=== PATIENT | female | born 1995 ===

== ENCOUNTER 2022-04-03 16:47 | Emergency (ER) | payer OTHER, SELFPAY ==
--- NOTE | ~2022-04-03 | XR_ITS ---
EXAMINATION: XR chest 1V CLINICAL INFORMATION: Reason for Exam HTN per triage nurse COMPARISON: None TECHNIQUE: One view of the chest FINDINGS: Clear lungs. No pneumothorax or pleural effusion. Normal cardiomediastinal silhouette. XR/XR chest 1V Impression: * Clear lungs.
--- NOTE | ~2022-04-03 | XR_ITS ---
EXAMINATION: XR hand LT 2V CLINICAL INFORMATION: Reason for Exam hand pain COMPARISON: None. TECHNIQUE: AP, lateral, and oblique views of the hand FINDINGS: No acute fracture or dislocation. Joint spaces are maintained without significant degenerative change. No soft tissue abnormality. XR/XR hand LT 2V IMPRESSION: No acute osseous abnormality.
[2022-04-03 16:51] VITALS: BP 145/73; PULSE 96; RESP 18; TEMP 36.7; O2SAT 99; BMI 49.8
--- NOTE | 2022-04-03 17:29 | ED_ITS ---
HPI - Extremity Problem General Chief complaint: Extremity Injury, Upper Stated complaint: left thumb pain work inj Time Seen by Provider: 04/03/22 17:14 Source: patient Mode of arrival: ambulatory Limitations: no limitations History of Present Illness HPI Narrative: 26-year-old female left-hand dominant here with complaints of left thumb pain after cutting some ham while working. Patient reports while she was using a knife she felt a snapping sensation in her left thumb. Immediately felt pain. No weakness, numbness or tingling of the extremity. Related Data Allergies Allergy/AdvReac Type Severity Reaction Status Date / Time Unable to Assess Allergy Verified 04/03/22 17:17 Review of Systems Review of Systems: Yes all other systems are reviewed and are negative Constitutional: Constitutional: Reports no additional constitutional complaints, Denies body ache(s), Denies chills, Denies fever(s), Denies headache(s) and Denies weakness Eyes: Eyes: Reports no additional eye complaints and Denies change in vision ENT: Reports system reviewed and no additional complaints, except as documented, Denies dizziness, Denies headache(s), Denies nasal congestion, Denies nasal discharge and Denies neck pain Cardiovascular: Cardiovascular: Reports no additional cardiovascular co mplaints, Denies chest pain, Denies leg edema and Denies dyspnea Respiratory: Respiratory: Reports no additional respiratory complaints, Denies cough and Denies dyspnea Gastrointestinal: Gastrointestinal: Reports no additional gastrointestinal complaints, Denies abdominal pain, Denies diarrhea, Denies nausea and Denies vomiting Genitourinary: Genitourinary: Reports no additional female genitourinary complaints and Denies urinary incontinence Musculoskeletal: Musculoskeletal: Reports no additional musculoskeletal complaints, Denies back pain, Reports arthralgias, Denies joint swelling, Denies neck pain, Denies numbness and Denies tingling Integumentary/Breasts: Skin/Breast: Reports system reviewed and no additional complaints, except as docu and Denies rash Neurologic: Reports system reviewed and no additional complaints, except as documented, Denies Abnormal speech present, Denies dizziness, Denies headache(s), Denies numbness, Denies tingling and Denies weakness PMFSH Past Medical History Attestation statement: The following information was validated with the patient. Source: old records reviewed and nursing notes reviewed Physical Exam Vital Signs: Vital Signs: Last Vital Signs Temp 98.1 F 04/03/22 16:51 Pulse 96 04/03/22 16:51 Resp 18 04/03/22 16:51 BP 145/73 H 04/03/22 16:51 Pulse Ox 99 04/03/22 16:51 BMI result Body Mass Index 49.8 Const: General: cooperative, healthy appearing, comfortable and no acute distress Orientation/consciousness: patient oriented x3 Limitations: no limitations HEENT: Head: Yes normal to inspection Ears: hearing grossly normal bilaterally General nose exam: Normal external nose present Face and sinus: Yes normal facial exam Mouth: Normal oral and palatal mucosa present Throat: Yes posterior oropharynx normal Eyes: General: appearance normal, both eyes and all related structures Pupils: Equal, round and reactive pupils present Neck: Neck: Yes normal visual inspection Chest: Chest palpation & inspection: normal inspection of the chest Resp: Effort & Inspection: normal respiratory effort Auscultation: clear to auscultation bilaterally Cardio: Rate: regular rate Rhythm: regular rhythm Peripheral pulses: Peripheral pulses 2+ throughout GI: Inspection: Yes normal to inspection Palpation (GI): Soft to palpation and nontender Auscultation: normal bowel sounds Back/Spine/Pelvis: Thoracic/Lumbar Spine: thoracic and lumbar spine normal to inspection Skin: General skin exam: no rashes or lesions noted Neuro: General: patient oriented x3, no focal motor deficits and normal sensation to monofilament Cranial nerves: Yes Equal, round and reactive pupils present Cognition (Neuro): normal cognition Speech: No Abnormal speech present Gait exam (Neuro): Normal gait present Motor exam (neuro): 5/5 motor strength present throughout Extrem: Other: Over the left thenar there is some mild tenderness and swelling. There is full range of motion of the thumb. Neurovascular intact distally. General: Yes nor mal to inspection Course Course Course Narrative: X-ray show no bony abnormality. Likely sprain. Recommend supportive care at home. Reviewed rice. Reviewed worrisome signs and symptoms of when to return to the emergency room. Comfortable plan for discharge home MDM - Extremity (Nontraumatic) MDM Narrative Medical decision making narrative: 26-year-old female left-hand dominant here with left thumb pain after working and having an injury. Will check x-rays Medical Records Attestation: I reviewed the patient's medical records. Lab Data Attestation: I reviewed the patient's lab results. Imaging Data hand x-ray: Attestation: I personally reviewed and interpreted this imaging study as follows: Radiologist's impression: Launch?Image [address] [address] XRay Report Signed Patient: Zainab Boyd MR#: [id number] : 1995 Acct:[id number] Age/Sex: 26 / F ADM Date: 04/03/22 Loc: HO.ED Attending Dr: Ordering Physician: Roseann Vera Date of Service: 04/03/22 Procedure(s): XR hand LT 2V Accession Number(s): [id number] cc: Roseann Vera~ EXAMINATION: XR hand LT 2V CLINICAL INFORMATION: Reason for Exam hand pain COMPARISON: None. TECHNIQUE: AP, lateral, and oblique views of the hand FINDINGS: No acute fracture or dislocation. ? Joint spaces are maintained without significant degenerative change. No soft tissue abnormality. XR/XR hand LT 2V IMPRESSION: ? No acute osseous abnormality. Discharge Plan Discharge Clinical Impression: Finger sprain Patient Disposition: Home, Self-Care Instructions: Finger Sprain (ED) Additional Instructions: Ice to the hand Motrin or tylenol for pain as needed Limit use of the hand Referrals: Physician,None [Primary Care Provider] - Stand Alone Forms: Work/School Release
== END 2022-04-03 18:03 | disposition home or self-care (01) ==
PROVIDERS: Emergency Provider Emergency Medicine
DX: S63.602A Unspecified sprain of left thumb, initial encounter (principal); R07.89 Other chest pain; Y28.9XXA Contact with unspecified sharp object, undetermined intent, initial encounter; Y93.9 Activity, unspecified; Y92.009 Unspecified place in unspecified non-institutional (private) residence as the place of occurrence of the external cause; Y99.9 Unspecified external cause status
CPT/HCPCS: 71045; 73120; 99282; 99283

== ENCOUNTER 2022-05-29 15:05 | Inpatient (IN) | payer SELFPAY ==
[2022-05-29] VITALS (8 sets, daily range): BP systolic 111–150; BP diastolic 61–81; PULSE 117–138; RESP 16–22; TEMP 36.8–37.3; O2SAT 93–96; BMI 55.2
--- NOTE | 2022-05-29 15:11 | ED.GENADULT ---
HPI - General Adult General Chief complaint: Asthma Stated complaint: SOB Time Seen by Provider: 05/29/22 15:06 Source: patient and EMS Mode of arrival: EMS Limitations: no limitations History of Present Illness HPI narrative: this is a 26-year-old female history of asthma presenting to the emergency department with shortness of breath, nausea, vomiting, diarrhea, fatigue, malaise , subjective fevers and chills X 3 days progressively worsening. Patient tells me she has used her albuterol inhaler at with little to no relief. Patient was found to be 90% on room air by EMS, was given 1 albuterol treatment, 1 DuoNeb, patient's O2 sat went up to 93% on 2 L. EMS also gave 125 of Solu-Medrol. patient reports her significant other is sick with flu-like symptoms. denies chest pain, nausea, vomiting, abdominal pain, headache, vision changes in dizziness. Related Data Previous Rx's Medication Instructions Recorded albuterol sulfate 90 mcg/actuation 2 inh inhalation Q4-6H PRN 05/29/22 breath activated powder inhaler shortness of breath or wheezing #1 ea oseltamivir 75 mg capsule (Tamiflu) 75 mg PO BID 5 days #10 caps 05/29/22 prednisone 20 mg tablet 40 mg PO DAILY 5 days #10 tabs 05/29/22 Allergies Allergy/AdvReac Type Severity Reaction Status Date / Time Unable to Assess Allergy Verified 04/03/22 17:17 Review of Systems Review of Systems: Constitutional : No Weight loss, + Fever, + Chills, + Fatigue, + Malaise ENT/Mouth : No sore throat, No Rhinorrhea Eyes: No Eye Pain, No Swelling, No Redness Cardiovascular : No Chest Pain, + SOB, No Dyspnea on Exertion, No Orthopnea, No Edema, No Palpitations Respiratory : No Cough, No Sputum, + Wheezing Gastrointestinal : + Nausea, + Vomiting, + Diarrhea, No Constipation, No abdominal Pain, No Hematochezia, No Melena Genitourinary : No Dysuria, No Urinary Frequency, No Hematuria, Musculoskeletal : No joint pain, No Myalgias, No Joint Swelling Skin : No Skin Lesions, No rash Neuro : No Weakness, No Numbness, No Dizziness, No Headache Psych : No Anxiety/Panic, No Depression All other systems reviewed and are negative Yes all other systems are reviewed and are negative PMFSH Past Medical History Attestation statement: The following information was validated with the patient. Source: old records reviewed and nursing notes reviewed Social History Social History Advance Directives: No Advance Directives Information Provided: No Physical Exam ED Vital Signs: Vital Signs - 24 hr 05/29/22 15:12 05/29/22 15:27 05/29/22 17:22 Temperature 99.2 F Pulse Rate 133 H 138 H 129 H Respiratory Rate 22 H 22 H 16 Blood Pressure 132/78 137/81 Pulse Oximetry 94 95 Oxygen Delivery Method Nasal Cannula Room Air Oxygen Flow Rate 2 05/29/22 17:41 Temperature Pulse Rate 123 H Respiratory Rate 19 Blood Pressure Pulse Oximetry Oxygen Delivery Method Oxygen Flow Rate BMI result Body Mass Index 55.2 vss Appearance: Alert.? Oriented X3.? moderate acute distress.? Head: Normocephalic, atraumatic, no step-offs or deformities Eyes: Pupils equal, round and reactive to light.? ENT: Pharynx normal.? Neck: Normal inspection.? Neck supple.? CVS: Rapid rate normal rhythm likely sinus tachycardia.? Pulses normal.? Respiratory: moderate respiratory distress.? Breath sounds diminished bilaterally with significant expiratory wheezing throughout. Patient with shallow breathing. using intercostals for breathing. Tracheal tugging noted. Speaking in short sentences Abdomen: Soft and nontender.? Skin: Skin warm and dry.? Normal skin color.? Normal skin turgor.? Extremities: No lower extremity edema.? No calf ttp, negatie sharee. 5/5 strength to bilateral upper and lower extremities Back: No midline tenderness, no C-spine tenderness, full range of motion, no CVA tenderness bilaterally Neuro: Oriented X 3.? No motor deficit.? No sensory deficit. CN 2-12 intact Course Reevaluation(s) Reevaluation #1: CBC with noted microcytic anemia. Chemistry with no acute electrolyte abnormalities requiring intervention. Patient is noted to be positive for influenza. After magnesium, Solu-Medrol, multiple nebulizing treatments patient reports she is feeling slightly better however I did obtain an ambulatory O2 and patient was noted to be 88% on room air with ambulation and was significantly short of breath. chest x-ray with hypoexpanded lungs with bibasilar atelectasis Patient will be admitted to the hospital for further intervention and treatment Time: 18:20 Medications Administered Discontinued Medications Generic Name Dose Route Start Last Admin Trade Name Fariba PRN Reason Stop Dose Admin Albuterol Sulfate 5 mg/ 0 mg 05/29/22 15:17 05/29/22 15:26 Albuterol/Ipratropium 3 ml INHALE 05/29/22 15:18 10 each ONCE ONE Administration Magnesium Sulfate 2 gm in 50 mls @ 25 mls/hr 05/29/22 15:10 05/29/22 15:17 Magnesium Sulfate/H2o IV 05/29/22 17:09 25 mls/hr ONCE ONE Administration Levalbuterol HCl 1.25 mg 05/29/22 17:07 05/29/22 17:39 Levalbuterol Hcl 1.25 Mg/0.5 Ml Vial.Neb INHALE 05/29/22 17:08 1.25 mg ONCE ONE Administration Medical Decision Making Medical Decision Making [facility] Narrative: 1514 26 year old female presents w/ sob & flu like sx. Moderate respiratory distress.? Breath sounds diminished bilaterally with significant expiratory wheezing throughout. Patient with shallow breathing. using intercostals for breathing. Tracheal tugging noted. Speaking in short sentences. Rapid rate normal rhythm likely sinus tachycardia. Likely viral infection triggering asthma. Unlikely PE or PNA. Patient has received multiple nebulizing treatments and albuterol treatments therefore tachycardia is expected Plan- duoneb, albuterol, labs, viral panel, cxr Lab Data Result Diagrams: 05/29/22 15:29 05/29/22 15:29 Labs: Lab Results 05/29/22 05/29/22 05/29/22 Range/Units 15:24 15:29 15:29 WBC 5.5 (4.8-10.8) X10*3/uL RBC 4.96 (4.20-5.50) X10*6/uL Hgb 10.1 L (12.0-16.0) g/dl Hct 32.1 L (37.0-47.0) % MCV 64.7 L (80.0-98.0) fL MCH 20.4 L (27.0-33.0) pg MCHC 31.5 (31.0-35.0) g/dl RDW 16.2 H (11.0-16.0) % Plt Count 259 (160-400) X10*3/uL MPV 10.7 (9.4-12.3) fL Immature Gran % (Auto) 0.5 H (0.0-0.4) % Neut % (Auto) 69.6 (45-73) % Lymph % (Auto) 16.6 L (20-40) % [place] % (Auto) 9.7 (2-11) % Eos % (Auto) 3.2 (0-4) % Baso % (Auto) 0.4 (0-2) % Lymph # (Auto) 0.9 L (1.2-4.9) X10*3/uL [place] # (Auto) 0.5 (0.1-1.2) X10*3/uL Eos # (Auto) 0.2 (0.0-0.4) X10*3/uL Baso # (Auto) 0.0 (0.0-0.2) X10*3/uL Abs Immat Gran (auto) 0.03 (0.00-0.03) X10*3/uL Absolute Neuts (auto) 3.9 (2.0-8.3) x10*3/uL Absolute Nucleated RBC 0.000 (0.0-0.012) X10*3/uL Nucleated RBC % (auto) 0.0 (0.0-0.2) /100WBC Smear Tech's Comments VERIFIED Sodium 137 (135-145) mmol/L Potassium 4.0 (3.3-5.1) mmol/L Chloride 105 (96-108) mmol/L Carbon Dioxide 21 L (22-29) mmol/L Anion Gap 15 (12-20) BUN 5 L (9-16) mg/dL Creatinine 0.76 (0.5-1.4) mg/dL Estim Creat Clear Calc 160.1 Estimated GFR > 60 Random Glucose 119 H (60-115) mg/dL Calcium 8.7 (8.4-10.2) mg/dL Magnesium 2.0 (1.6-2.6) mg/dL Total Bilirubin 0.6 (0.0-1.0) mg/dL AST 27 (5-31) U/L ALT 9 (0-31) U/L Alkaline Phosphatase 77 (39-117) U/L Total Protein 7.6 (6.5-8.0) g/dL Albumin 4.0 (3.5-5.0) g/dL Influenza Type A (PCR) POSITIVE A (Negative) Influenza Type B (PCR) NEGATIVE (Negative) RSV RNA Qual (PCR) NEGATIVE (Negative) SARS-CoV-2 RNA (RT-PCR) NEGATIVE (Negative) Critical Care Time Critical Care Time Critical Care Time: No Discharge Plan Discharge Clinical Impression: Asthma with acute exacerbation, Influenza A, Hypoxia Patient Disposition: Admitted As Inpatient Instructions: Asthma (ED), Influenza (ED), Wheezing (ED) Additional Instructions: ? Prescriptions: New oseltamivir [Tamiflu] 75 mg capsule 75 mg PO BID 5 Days Qty: 10 0RF prednisone 20 mg tablet 40 mg PO DAILY 5 Days Qty: 10 0RF albuterol sulfate 90 mcg/actuation aerosol powdr breath activated 2 inh inhalation Q4-6H PRN (Reason: shortness of breath or wheezing) Qty: 1 0RF Referrals: Physician,Unknown J [Primary Care Provider] - 2 days Stand Alone Forms: Work/School Release
[2022-05-29 15:37] LABS: Hemoglobin 10.1 g/dl (12.0-16.0); Imm Gran Abs Auto 0.03 X10*3/uL (0.00-0.03); Imm Gran Pct Auto 0.5 % (0.0-0.4); MANUAL DIFF FLAG SCAN; Red Cell Distribution Width 16.2 % (11.0-16.0); SCAN SMEAR FLAG 1
[2022-05-29 15:39] LABS: Basophils Percent Auto 0.4 % (0-2); Eosinophils Absolute Auto 0.2 X10*3/uL (0.0-0.4); Eosinophils Percent Auto 3.2 % (0-4); Hematocrit 32.1 % (37.0-47.0); Lymphocytes Absolute Auto 0.9 X10*3/uL (1.2-4.9); Lymphocytes Percent Auto 16.6 % (20-40); Mean Corpuscular HGB Conc 31.5 g/dl (31.0-35.0); Mean Corpuscular Hemoglobin 20.4 pg (27.0-33.0); Monocytes Absolute Auto 0.5 X10*3/uL (0.1-1.2); Monocytes Percent Auto 9.7 % (2-11); Neutrophils Absolute Auto 3.9 x10*3/uL (2.0-8.3); Neutrophils Percent Auto 69.6 % (45-73); Red Blood Count 4.96 X10*6/uL (4.20-5.50); White Blood Count 5.5 X10*3/uL (4.8-10.8)
[2022-05-29 15:41] LABS: Mean Corpuscular Volume 64.7 fL (80.0-98.0); PLT ABN DIST 1
[2022-05-29 16:11] LABS: Alanine Aminotransferase 9 U/L (0-31); Alkaline Phosphatase 77 U/L (39-117); Anion Gap 15 (12-20); Aspartate Amino Transferase 27 U/L (5-31); Bilirubin Total 0.6 mg/dL (0.0-1.0); Blood Urea Nitrogen 5 mg/dL (9-16); Calcium 8.7 mg/dL (8.4-10.2); Carbon Dioxide 21 mmol/L (22-29); Chloride 105 mmol/L (96-108); Creatinine Clr Calc Pharmacy 160.1; Estimated Glomerular Filt Rate > 60; Glucose Random 119 mg/dL (60-115); Sodium 137 mmol/L (135-145); Total Protein 7.6 g/dL (6.5-8.0)
--- NOTE | 2022-05-29 16:14 | PC.NURSE ---
PT ARRIVED WITH IV IN LAC FROM EMS NOT FUNCTIONING, RESTARTED IN RIGHT HAND
[2022-05-29 16:20] LABS: Mean Platelet Volume 10.7 fL (9.4-12.3); Platelet Count 259 X10*3/uL (160-400)
[2022-05-29 16:21] LABS: SLIDE REVIEW VERIFIED
[2022-05-29 16:26] LABS: Influenza A PCR POSITIVE (Negative); Influenza B PCR NEGATIVE (Negative); Resp Syncy Virus RNA Qual PCR NEGATIVE (Negative); SARS COV2 PCR INHOUSE NEGATIVE (Negative)
--- NOTE | 2022-05-29 18:39 | PHA.MEDREC ---
Pharmacy Consult ? Medication Reconciliation Pharmacy has completed the medication reconciliation. Patient states she only takes an allergy medication and her albuterol inhaler at home. She states she didn't take the tamiflu and prednisone listed in her profile today. Clarified with her that the allergy medication she takes at home is benadryl and that she takes it in the morning and not bedtime.
--- NOTE | 2022-05-29 18:46 | PC.NURSE ---
desat to 88 with amb
--- NOTE | 2022-05-29 19:00 | PC.NURSE ---
This video games storywriter assumed care of this PT at this time.
--- NOTE | 2022-05-29 20:10 | PC.NURSE ---
PT ambulated to BR independently. PO liquids, and sandwich given per request.
--- NOTE | 2022-05-29 21:00 | PC.NURSE ---
PT a&ox4, states tightness on her back . O2 sat 92% on RA, RR 24. LS wheezy to right side. Respiratory notified.
--- NOTE | 2022-05-29 23:36 | MHC.EDTECH ---
Pt assisted in changing over from outside clothes into a hospital gown. Pt given belongings bags for personal items. Pt given ice water and a warm blanket. Pt call penaloza placed in reach
[2022-05-30] VITALS (12 sets, daily range): BP systolic 126–160; BP diastolic 63–99; PULSE 71–117; RESP 17–22; TEMP 36.3–37.2; O2SAT 89–98; BMI 53.3
--- NOTE | 2022-05-30 01:40 | PC.NURSE ---
PT reported slight relief of Tylenol for back pain. Provider notified, obtained new order. Med given.
--- NOTE | 2022-05-30 02:05 | PC.NURSE ---
PT reports breathing treatment effectiveness. O2 sat 93% on RA.
--- NOTE | 2022-05-30 02:11 | PC.NURSE ---
PT sleeping O2 sat at 88% RA, 1L of NC applied, o2 sat 94%.
--- NOTE | 2022-05-30 02:16 | PC.NURSE ---
Addendum entered by Gabby Barajas 05/30/22 02:16: PT aware of plan. Original Note: RN to RN report given. PT being transported via stretcher to 376.
--- NOTE | 2022-05-30 05:31 | PM.IMHP ---
History of Present Illness Date of Service: 05/29/22 Chief Complaint: wheezing This is a 26-year-old female with past medical history of asthma presents to the hospital with complaints of wheezing, tightness, shortness of breath and cough for the past 3 days. Patient reports chills with no fever, reports chest pain with coughing, abdominal pain with coughing, Some nausea with no vomiting, denies any urinary symptoms and no lower extremity edema. On arrival to the ED patient found to be tachypneic and tachycardic with heart rate in the 130s , patient appears to dipped to high 80s O2 on room air on ambulation. Labs are sig for WBC count 5.5, labs otherwise unremarkable, Chest x-ray shows hypoexpanded lungs with bibasilar atelectasis, Influenza A positive Review of Systems Review of Systems: Yes all other systems are reviewed and are negative [facility] Medical History (Updated 05/30/22 @ 05:39 by Michelle Ritchie MD) Asthma Family History (Updated 05/30/22 @ 05:36 by Michelle Ritchie MD) Other Family history of asthma Surgical History (Updated 05/30/22 @ 05:36 by Michelle Ritchie MD) No pertinent past surgical history Social History Alcohol intake: current Alcohol intake frequency: holidays/special occasions only Alcohol type: wine Patient Tobacco Use Status: Never used Tobacco Smoked in Last 30 Days: No Use of substances other than those prescribed or required for medical reasons: No Currently Displaying Signs/Symptoms of Drug Intoxication Withdrawal: No Advance Directives: No Advance Directives Information Provided: No Do you have thoughts of harming others: None Do you have a plan to hurt others: No Plan Patient : No Meds Allergies Allergy/AdvReac Type Severity Reaction Status Date / [facility] Allergy Anaphylaxis Verified 05/30/22 02:07 Active Medications: Current Medications Acetaminophen (Acetaminophen 325 Mg Tablet) 650 mg PO Q6H PRN PRN Reason: Pain, Mild (Pain Scale 1-3) Last Admin: 05/29/22 21:06 Dose: 650 mg Albuterol/Ipratropium (Albuterol/Iprat 2.5/0.5mg 3 Ml Ampul.Neb) 3 ml INHALE RQ4H PRN PRN Reason: Shortness of Breath/Wheezing Last Admin: 05/30/22 00:49 Dose: 3 ml Albuterol/Ipratropium (Albuterol/Iprat 2.5/0.5mg 3 Ml Ampul.Neb) 3 ml INHALE RQ4H WHILE AWAKE [facility] Methylprednisolone Sodium Succinate (Methylprednisolone Sod Succ 40 Mg/Ml Vial) 40 mg IVPUSH Q12H [facility] Last Admin: 05/29/22 20:56 Dose: 40 mg Ondansetron HCl (Ondansetron Hcl 4 Mg/2 Ml Vial) 4 mg IVPUSH Q8H PRN PRN Reason: Nausea and Vomiting Pharmacy Consult (Consult Rx Perform Med Rec) 1 each MISCELLANE ONCE PRN PRN Reason: Consult order Sodium Chloride (0.9 % Sodium Chloride Flush 3 Ml Syringe) 3 ml IVFLUSH QSHIFT [facility] Last Admin: 05/30/22 01:27 Dose: 3 ml Home Medications Medication Instructions Recorded Confirmed Last Taken Type albuterol sulfate 90 mcg/actuation 2 puff inhalation Q4-6H PRN 05/29/22 05/29/22 05/29/22 History aerosol inhaler (ProAir HFA) Shortness Of Breath Or Wheezing diphenhydramine HCl 25 mg capsule 25 mg PO DAILY@0900 05/29/22 05/29/22 05/29/22 History (Benadryl) Physical Exam Vital Signs and Narrative: Vital Signs: Last Vital Signs Temp 99.0 F 05/30/22 02:36 Pulse 116 H 05/30/22 02:36 Resp 20 05/30/22 02:36 BP 126/80 05/30/22 02:36 Pulse Ox 93 05/30/22 02:36 O2 Del Method 05/30/22 02:36 O2 Flow Rate 2 05/30/22 02:36 BMI result Body Mass Index 53.3 Const: General: cooperative and no acute distress Orientation/consciousness: patient oriented x3 Eyes: General: appearance normal, both eyes and all related structures Resp: Other: patient is sitting up in bed, tripoding, has significant wheezing Effort & Inspection: normal respiratory effort Auscultation: rales and wheezes Cardio: Rate: regular rate Rhythm: regular rhythm GI: Palpation (GI): Soft to palpation Auscultation: normal bowel sounds Skin: General skin exam: no rashes or lesions noted Neuro: General: patient oriented x3 Cognition (Neuro): normal cognition Extrem: General: Yes normal to inspection and Yes no pedal edema Results Labs CBC and Chem 7: 05/29/22 15:29 05/29/22 15:29 Labs: Laboratory Results - last 24 hr 05/29/22 05/29/22 05/29/22 15:24 15:29 15:29 MCV 64.7 L MCH 20.4 L MCHC 31.5 RDW 16.2 H Plt Count 259 MPV 10.7 Immature Gran % (Auto) 0.5 H Neut % (Auto) 69.6 Lymph % (Auto) 16.6 L [place] % (Auto) 9.7 Eos % (Auto) 3.2 Baso % (Auto) 0.4 Lymph # (Auto) 0.9 L [place] # (Auto) 0.5 Eos # (Auto) 0.2 Baso # (Auto) 0.0 Abs Immat Gran (auto) 0.03 Absolute Neuts (auto) 3.9 Absolute Nucleated RBC 0.000 Nucleated RBC % (auto) 0.0 Smear Tech's Comments VERIFIED Anion Gap 15 Estim Creat Clear Calc 160.1 Estimated GFR > 60 Random Glucose 119 H Calcium 8.7 Magnesium 2.0 Total Bilirubin 0.6 AST 27 ALT 9 Alkaline Phosphatase 77 Total Protein 7.6 Albumin 4.0 Influenza Type A (PCR) POSITIVE A Influenza Type B (PCR) NEGATIVE RSV RNA Qual (PCR) NEGATIVE SARS-CoV-2 RNA (RT-PCR) NEGATIVE Imaging Radiologist's Impressions: Impressions Chest X-Ray 05/29/22 15:20 IMPRESSION: Hypoexpanded lungs with bibasilar atelectasis. Assessment and Plan (1) Asthma with acute exacerbation: Status: Acute (2) Influenza A: Status: Acute (3) Acute respiratory failure with hypoxia: Status: Acute Plan 26-year-old female past medical history of asthma presents with asthma exacerbation # acute asthma exacerbation - likely secondary to influenza a infection - no evidence of pneumonia - will treat with IV Solu-Medrol, DuoNeb p.r.n. as well as scheduled, - monitor respiratory status # acute hypoxic respiratory failure - hypoxic on ambulation - secondary to above - will treat with oxygen, DuoNeb p.r.n. as well as Solu-Medrol - monitor oxygen required # influenza a infection - no evidence of pneumonia - Tamiflu DVT prophylaxis: Early ambulation given patient's acute asthma exacerbation requiring oxygen treatment [facility] further monitoring Time Spent With Patient Time: Total time managing care of this patient today ____ minutes. Quality Stroke Does the patient have a stroke diagnosis?: No VTE Prior VTE?: No VTE Risk Level:: Medical - low VTE Device Contraindication: Treatment Not Indicated VTE Drug Contraindication: Treatment Not Indicated
[2022-05-30 07:32] LABS: MANUAL DIFF FLAG NO
[2022-05-30 07:36] LABS: Basophils Percent Auto 0.1 % (0-2); Hematocrit 31.4 % (37.0-47.0); Imm Gran Abs Auto 0.08 X10*3/uL (0.00-0.03); Lymphocytes Absolute Auto 0.6 X10*3/uL (1.2-4.9); Lymphocytes Percent Auto 7.7 % (20-40); Mean Corpuscular HGB Conc 31.8 g/dl (31.0-35.0); Mean Corpuscular Hemoglobin 20.4 pg (27.0-33.0); Mean Platelet Volume 11.3 fL (9.4-12.3); Monocytes Absolute Auto 0.4 X10*3/uL (0.1-1.2); Monocytes Percent Auto 5.3 % (2-11); NRBC Pct Auto 0.2 /100WBC (0.0-0.2); Neutrophils Percent Auto 85.9 % (45-73); Platelet Count 342 X10*3/uL (160-400); Red Blood Count 4.89 X10*6/uL (4.20-5.50); Red Cell Distribution Width 16.3 % (11.0-16.0); SCAN SMEAR FLAG 1; White Blood Count 8.1 X10*3/uL (4.8-10.8)
[2022-05-30 07:38] LABS: Mean Corpuscular Volume 64.2 fL (80.0-98.0); PLT ABN DIST 1
[2022-05-30 07:56] LABS: Anion Gap 15 (12-20); Blood Urea Nitrogen 6 mg/dL (9-16); Calcium 9.2 mg/dL (8.4-10.2); Carbon Dioxide 21 mmol/L (22-29); Chloride 104 mmol/L (96-108); Estimated Glomerular Filt Rate > 60; Glucose Random 132 mg/dL (60-115); Potassium 3.8 mmol/L (3.3-5.1); Sodium 136 mmol/L (135-145)
[2022-05-30 09:42] LABS: Ferritin 42 ng/mL (10-122); Iron 22 mcg/dL (30-160); Percent Iron Saturation 6 % (15-50); Total Iron Binding Capacity 342 mcg/dL (228-428); Unsaturated Iron Binding 320 ug/dL
--- NOTE | 2022-05-30 10:47 | HO.PM.IMPN ---
Subjective Subjective Date of Service: 05/30/22 Interval History: Seen in follow up for acute asthma exacerbation with hypoxia Interval history: Still requiring supplemental O2, satting 88-90% on 2L. Took a shower this morning with significant dyspnea. Still wheezing with right sided pleuritic cp and cough. Review of Systems General: No fevers, malaise, unintentional weight loss Cardiovascular: No chest pain, palpitations, or leg edema Respiratory: +shortness of breath, +wheezing, +cough GI: No abdominal pain, nausea, vomiting, diarrhea : No dysuria, hematuria, increased urinary frequency, decreased urinary output MSK: No myalgia, back pain Neuro: No headaches, weakness, paresthesias Skin: No rashes or lesions Physical Exam Vital Signs: Vital Signs: Last Vital Signs Temp 98.4 F 05/30/22 07:59 Pulse 100 05/30/22 08:42 Resp 18 05/30/22 08:42 BP 142/82 H 05/30/22 07:59 Pulse Ox 96 05/30/22 07:59 O2 Del Method 05/30/22 07:59 O2 Flow Rate 2 05/30/22 07:59 BMI result Body Mass Index 53.3 Constitutional - Awake and Alert, No apparent distress Eyes - PERRLA, EOMI Cardiovascular - S1S2, RRR, No edema Respiratory - Normal lung expansion, Normal respiratory effort, No respiratory distress satting at 92-93% on 2L supplemental O2, wheezing BLL, lung sound diminished b/l Gastrointestinal - NT / ND; +BS; No rebound or guarding Extremities - no calf tenderness bilaterally, no swelling Skin - Warm/Dry Neurological - Alert & oriented x3 Psychological - Appropriate affect Objective Data Active Medications Acetaminophen (Acetaminophen 325 Mg Tablet) 650 mg PO Q6H PRN PRN Reason: Pain, Mild (Pain Scale 1-3) Last Admin: 05/30/22 05:56 Dose: 650 mg Documented By: DALJITQC Albuterol/Ipratropium (Albuterol/Iprat 2.5/0.5mg 3 Ml Ampul.Neb) 3 ml INHALE RQ4H PRN PRN Reason: Shortness of Breath/Wheezing Last Admin: 05/30/22 05:44 Dose: 3 ml Documented By: JESUSSS Albuterol/Ipratropium (Albuterol/Iprat 2.5/0.5mg 3 Ml Ampul.Neb) 3 ml INHALE RQ4H WHILE AWAKE [facility] Last Admin: 05/30/22 08:42 Dose: 3 ml Documented By: KARAN Benzonatate (Benzonatate 100 Mg Capsule) 100 mg PO TID [facility] Last Admin: 05/30/22 08:58 Dose: 100 mg Documented By: ARIES-SOFFA Guaifenesin (Guaifenesin 200 Mg/10 Ml 10 Ml Liquid) 10 ml PO Q6H [facility] Last Admin: 05/30/22 08:58 Dose: 10 ml Documented By: ARIES-SOFCLAIRE Methylprednisolone Sodium Succinate (Methylprednisolone Sod Succ 40 Mg/Ml Vial) 40 mg IVPUSH Q12H [facility] Last Admin: 05/30/22 08:29 Dose: 40 mg Documented By: ARIES-SOFCLAIRE Ondansetron HCl (Ondansetron Hcl 4 Mg/2 Ml Vial) 4 mg IVPUSH Q8H PRN PRN Reason: Nausea and Vomiting Oseltamivir Phosphate (Oseltamivir Phosphate 75 Mg Capsule) 75 mg PO Q24H [facility] Stop: 06/03/22 05:46 Last Admin: 05/30/22 06:17 Dose: 75 mg Documented By: MARVIN Pharmacy Consult (Consult Rx Perform Med Rec) 1 each MISCELLANE ONCE PRN PRN Reason: Consult order Sodium Chloride (0.9 % Sodium Chloride Flush 3 Ml Syringe) 3 ml IVFLUSH QSHIFT [facility] Last Admin: 05/30/22 07:21 Dose: Not Given Documented By: THANIA Non-Admin Reason: See Note Labs CBC & Chem 7: 05/30/22 06:34 05/30/22 06:34 Labs: Laboratory Results - last 24 hr 05/29/22 05/29/22 05/29/22 15:24 15:29 15:29 MCV 64.7 L MCH 20.4 L MCHC 31.5 RDW 16.2 H Plt Count 259 MPV 10.7 Immature Gran % (Auto) 0.5 H Neut % (Auto) 69.6 Lymph % (Auto) 16.6 L [place] % (Auto) 9.7 Eos % (Auto) 3.2 Baso % (Auto) 0.4 Lymph # (Auto) 0.9 L [place] # (Auto) 0.5 Eos # (Auto) 0.2 Baso # (Auto) 0.0 Abs Immat Gran (auto) 0.03 Absolute Neuts (auto) 3.9 Absolute Nucleated RBC 0.000 Nucleated RBC % (auto) 0.0 Smear Tech's Comments VERIFIED Anion Gap 15 Estim Creat Clear Calc 160.1 Estimated GFR > 60 Random Glucose 119 H Calcium 8.7 Magnesium 2.0 Iron TIBC % Saturation Unsat Iron Binding Ferritin Total Bilirubin 0.6 AST 27 ALT 9 Alkaline Phosphatase 77 Total Protein 7.6 Albumin 4.0 Influenza Type A (PCR) POSITIVE A Influenza Type B (PCR) NEGATIVE RSV RNA Qual (PCR) NEGATIVE SARS-CoV-2 RNA (RT-PCR) NEGATIVE 05/30/22 05/30/22 06:34 06:34 MCV 64.2 L MCH 20.4 L MCHC 31.8 RDW 16.3 H Plt Count 342 D MPV 11.3 Immature Gran % (Auto) 1.0 H Neut % (Auto) 85.9 H Lymph % (Auto) 7.7 L [place] % (Auto) 5.3 Eos % (Auto) 0.0 Baso % (Auto) 0.1 Lymph # (Auto) 0.6 L [place] # (Auto) 0.4 Eos # (Auto) 0.0 Baso # (Auto) 0.0 Abs Immat Gran (auto) 0.08 H Absolute Neuts (auto) 7.0 Absolute Nucleated RBC 0.020 H Nucleated RBC % (auto) 0.2 Smear Tech's Comments Anion Gap 15 Estim Creat Clear Calc 163.0 Estimated GFR > 60 Random Glucose 132 H Calcium 9.2 Magnesium Iron 22 L TIBC 342 % Saturation 6 L Unsat Iron Binding 320 Ferritin 42 Total Bilirubin AST ALT Alkaline Phosphatase Total Protein Albumin Influenza Type A (PCR) Influenza Type B (PCR) RSV RNA Qual (PCR) SARS-CoV-2 RNA (RT-PCR) Assessment and Plan (1) Acute respiratory failure with hypoxia: Status: Acute (2) Asthma with acute exacerbation: Status: Acute (3) Influenza A: Status: Acute Plan ?26-year-old female past medical history of asthma presents with asthma exacerbation and hypoxia #? acute asthma exacerbation -? likely secondary to influenza a infection -? no evidence of pneumonia -? will treat with IV Solu-Medrol, DuoNeb p.r.n. as well as scheduled, -? monitor respiratory status #? acute hypoxic respiratory failure -? Requiring 4L supplemental O2 maintaining oximetry 92-93% -? secondary to above. Also likely related to obesity hypoventilation syndrome. Add IS -? will treat with oxygen, DuoNeb p.r.n. and scheduled as well as IV Solu-Medrol -? monitor oxygen required #? influenza a infection -? no evidence of pneumonia -? Tamiflu # Morbid obesity - Encourage weight loss- healthy diet/exercise - Contributing to obesity hypoventilation syndrome. See above ?DVT? prophylaxis: Early ambulation ?Pt requires ongoing inpt stay for management of acute asthma exacerbation with hypoxia requiring supplemental O2 and IV steroids with close monitoring for pulmonary decompensation Quality Stroke Does the patient have a stroke diagnosis?: No VTE Prior VTE?: No VTE Risk Level:: Medical - low VTE Device Contraindication: Treatment Not Indicated VTE Drug Contraindication: Treatment Not Indicated
--- NOTE | 2022-05-30 13:12 | MHC.CM.PN ---
JOE DELIVERED. CM MET WITH PT, LIVES WITH SPOUSE IN AN APT. NO SERVICES OR DME PRIOR, INDEPENDENT AT BASELINE. EMPLOYED. NO HCP BUT WILLING TO CONSIDER. COVID VAX X2 NO PCP, [facility] [place] [facility] [place] [facility] G[place]. DP: HOME, NO SERVICES. [facility] WILL TRANSPORT ON DC.
--- NOTE | 2022-05-30 17:08 | PC.NURSE ---
SHOULDER PAD MOLDER at bedside assessing pt this AM. Per SHOULDER PAD MOLDER, maintained 4L n/c. pt c/o increased SOB and chest pain/pressure after ambulating to the restroom while not wearing O2. Pt was then placed back on O2 and chest discomfort resolved. SHOULDER PAD MOLDER was informed. Pt c/o moderate headache along w/ an elevated BP. Pen Tender was informed and ibuprofen was administered.
[2022-05-31 04:00] VITALS: BP 140/79; PULSE 98; RESP 22; TEMP 36.9; O2SAT 92
[2022-05-31 07:01] VITALS: BP 147/82; PULSE 101; RESP 20; TEMP 36.1; O2SAT 94
[2022-05-31 09:08] VITALS: O2SAT 92
[2022-05-31 09:13] VITALS: PULSE 101; RESP 18; O2SAT 91
[2022-05-31 11:32] VITALS: PULSE 102; RESP 16; O2SAT 94
--- NOTE | 2022-05-31 12:37 | PM.DS ---
DS: Providers Provider Date of Service: 05/31/22 Date of admission: 05/29/22 20:10 Date of discharge: 05/31/22 Primary care physician: Unknown Physician Admitting clinician: Michelle Palacios Attending physician on admission: Michelle Palacios Attending physician on discharge: Brianna Guevara Discharging clinician: Candace Macario DS: Diagnosis Discharge Diagnosis (1) Acute respiratory failure with hypoxia: Status: Acute (2) Asthma with acute exacerbation: Status: Acute (3) Influenza A: Status: Acute DS: Summary Hospital Course Hospital Course: HPI on admission by Dr. palacios: Chief Complaint: wheezing This is a 26-year-old female with past medical history of asthma presents to the hospital with complaints of wheezing, tightness, shortness of breath and cough for the past? 3 days.? Patient reports chills with no fever, reports chest pain with coughing, abdominal pain with coughing,? Some nausea with no vomiting, denies any urinary symptoms and no lower extremity edema. ? On arrival to the ED patient found to be tachypneic and tachycardic with heart rate in the 130s ,? patient appears to dipped to high? 80s O2 on room air on ambulation. Labs are sig for WBC count 5.5, labs otherwise unremarkable, Chest x-ray shows hypoexpanded lungs with bibasilar atelectasis, Influenza A positive Hospital Course: Pt admitted for management of acute asthma exacerbation and acute hypoxemic respiratory failure secondary to influenza A. CXR negative for pneumonia but showed hypoexpanded lungs. Pt titrated off supplemental O2 with respiratory support using incentive spirometry with resolution of acute hypoxemia. Vitals otherwise stable throughout admission. Her influenza was treated with tamiflu x 2 days and she will be discharge with addl 3 day course tamiflu. Asthma exacerbation treated with IV solumedrol and will complete additional 3 day course oral prednisone 40mg daily. She was treated wtih scheduled duonebs as well with improvement in symptoms. She would also likely benefit from daily flovent inhaler for maintainence of asthma symptoms. Advised to follow up with PCP soon. Status at Discharge Functional status at discharge: independent ambulation Overall status at discharge: patient is back to baseline Time Spent with Patient Discharge coordination time: Greater than 30 minutes Quality: Safe Use of Opioids Does Pt have an Active Cancer Diagnosis on the Problem List?: No Quality: Stroke Does the patient have a stroke diagnosis?: No Physical Exam Vital Signs: Vital Signs: Last Vital Signs Temp 96.9 F 05/31/22 07:01 Pulse 102 H 05/31/22 11:32 Resp 16 05/31/22 11:32 BP 147/82 H 05/31/22 07:01 Pulse Ox 92 05/31/22 09:08 O2 Del Method 05/31/22 07:01 O2 Flow Rate 2 05/30/22 19:38 BMI result Body Mass Index 53.3 Discharge Plan Discharge Anticipated Discharge Date/Time: 05/31/22 11:32 Patient Disposition: Home, Self-Care Discharge Diagnosis: Asthma exacerbation with hypoxia secondary to inifluenza A Referrals: Physician,Unknown J [Primary Care Provider] - 2 days Discharge Medications: New prednisone 20 mg tablet 40 mg PO DAILY Qty: 4 0RF fluticasone propionate [Flovent HFA] 110 mcg/actuation HFA aerosol inhaler 1 puff inhalation BID Qty: 12 0RF Rx Instructions: Rinse mouth well following use oseltamivir [Tamiflu] 75 mg capsule 75 mg PO BID Qty: 7 0RF Continued diphenhydramine HCl [Benadryl] 25 mg Capsule 25 mg PO DAILY@0900 albuterol sulfate [ProAir HFA] 90 mcg/actuation Hfa Aerosol Inhaler 2 puff INHALATION Q4-6H PRN (Reason: Shortness Of Breath Or Wheezing) Discharge Orders: Discharge Order (Routine); Ordered 05/31/22 Ordered By: Candace Macario Diet: Advance to usual diet Activity on Discharge: As tolerated Stand Alone Forms: Patient Portal Discharge page, Work/School Release Activity Restrictions/Additional Instructions: ? Care Plan Goals: Resolve asthma exacerbation and prevent recurrence Health Concerns: Asthma exacerbation Acute hypoxic respiratory failure Influenza A Plan of Treatment: Asthma exacerbation- secondary to influenza A -You were treated with IV steroids x 3 days while admitted. Continue additional 2 days oral prednisone upon discharge, next dose due tomorrow morning (06/01). -After you have completed prednisone, use Flovent inhaler twice every day (not as needed) for maintenance of asthma and prevention of exacerbation. Rinse mouth well following each use -You were successfully weaned from supplemental oxygen while in the hospital without recurrence of hypoxia at rest or with exertion. -Use albuterol as needed -Continue tamiflu to reduce duration of flu symptoms. Next dose due 05/31 pm -Follow up with PCP Assessment: See above Patient Instructions: Asthma (ED), Influenza (ED), Wheezing (ED) Discharge Date/Time: 05/31/22 13:45
--- NOTE | 2022-05-31 13:27 | MHC.CM.PN ---
HOME - SELF CARE RN AWARE OF PLAN
== END 2022-05-31 13:45 | disposition home or self-care (01) | DRG 193 ==
LOC: HO.ED 18:22 → HO.S3 05-30 02:21 → HO.EDOVER 05-30 08:50 → HO.S3 05-30 08:50
PROVIDERS: Physician Assistant; Admitting Provider Internal Medicine; Emergency Provider Student in an Organized Health Care Education/Training Program; Visit Provider Physician Assistant
DX: J10.1 Influenza due to other identified influenza virus with other respiratory manifestations (principal); J96.01 Acute respiratory failure with hypoxia; J45.901 Unspecified asthma with (acute) exacerbation; Z68.43 Body mass index [BMI] 50.0-59.9, adult; E66.01 Morbid (severe) obesity due to excess calories; Z71.3 Dietary counseling and surveillance; Z23 Encounter for immunization; Z88.8 Allergy status to other drugs, medicaments and biological substances; Z87.892 Personal history of anaphylaxis; Z79.899 Other long term (current) drug therapy
CPT/HCPCS: 0241U; 36415; 71045; 80048; 80053; 82728; 83540; 83735; 85025; 90686; 94640; 99285; J2405; J2920; J3475

== ENCOUNTER 2023-02-01 16:18 | Emergency (ER) | payer OTHER, SELFPAY ==
--- NOTE | ~2023-02-01 | XR_ITS ---
EXAMINATION: XR CHEST CLINICAL INFORMATION: Wheezing. COMPARISON: Chest radiograph dated 05/29/2022. TECHNIQUE: 2 views of the chest were obtained. FINDINGS: No significant abnormality is noted involving the heart, lungs, mediastinum, bony thorax or soft tissues. XR/XR chest 2V IMPRESSION: No acute cardiopulmonary process.
[2023-02-01 17:06] VITALS: BP 117/78; PULSE 83; RESP 24; TEMP 36.9; O2SAT 99; BMI 57.7
--- NOTE | 2023-02-01 17:06 | ED_ITS ---
HPI - General Adult General Chief complaint: Asthma Stated complaint: ashtma Time Seen by Provider: 02/01/23 20:32 Source: patient Mode of arrival: ambulatory Limitations: no limitations History of Present Illness HPI narrative: A few hours of wheeze, patient had a last attack a few weeks ago. Patient feels her seasonal allergies are making her worse. Onset (ago): hour(s) Related Data Home Medications Medication Instructions Recorded Confirmed albuterol sulfate 90 mcg/actuation 2 puff inhalation Q4-6H PRN 05/29/22 05/29/22 aerosol inhaler (ProAir HFA) Shortness Of Breath Or Wheezing diphenhydramine HCl 25 mg capsule 25 mg PO DAILY@0900 05/29/22 05/29/22 (Benadryl) Previous Rx's Medication Instructions Recorded fluticasone propionate 110 1 puff inhalation BID #12 grams 05/31/22 mcg/actuation HFA aerosol inhaler (Flovent HFA) oseltamivir 75 mg capsule (Tamiflu) 75 mg PO BID #7 caps 05/31/22 prednisone 20 mg tablet 40 mg PO DAILY #4 tabs 05/31/22 albuterol sulfate 90 mcg/actuation 2 puff inhalation 6XD PRN 02/01/23 aerosol inhaler shortness of breath or wheezing #8.5 grams Allergies Allergy/AdvReac Type Severity Reaction Status Date / Time ziprasidone [From Geodon] Allergy Anaphylaxis Verified 05/30/22 02:07 Review of Systems Review of Systems: Yes all other systems are reviewed and are negative [facility] Past Medical History Medical History Asthma Surgical History No pertinent past surgical history Family History Family History Other Family history of asthma Social History Social History Alcohol intake: current Alcohol intake frequency: holidays/special occasions only Alcohol type: wine Patient Tobacco Use Status: Never used Tobacco Advance Directives: No Advance Directives Information Provided: No service: No Current occupational status: employed Physical Exam ED Vital Signs: Vital Signs - 24 hr 02/01/23 17:06 02/01/23 20:56 Temperature 98.5 F 98.8 F Pulse Rate 83 82 Respiratory Rate 24 H 22 H Blood Pressure 117/78 136/85 Pulse Oximetry 99 98 Oxygen Delivery Method Room Air Room Air BMI result Body Mass Index 57.7 Const Nutritional Appearance: obese Orientation/consciousness: oriented to person and patient oriented x3 Limitations: no limitations HENMT Head: Yes normal to inspection Ears: external ears normal General nose exam: Normal external nose present Mouth: Normal oral and palatal mucosa present and oropharynx normal Throat: Yes posterior oropharynx normal Eyes General: appearance normal, both eyes and all related structures Neck Neck: Yes normal visual inspection Chest Chest palpation & inspection: normal inspection of the chest Resp Other: diffuse wheezing Cardio Jugular venous distension: no JVD Rate: regular rate Rhythm: regular rhythm Heart sounds: S1 normal heart sound present and S2 normal heart sound present GI Inspection: Yes normal to inspection Palpation (GI): Soft to palpation, nontender and No hepatosplenomegaly present Auscultation: normal bowel sounds General: Yes no CVA tenderness Back/Spine/Pelvis Back: no CVA tenderness Skin General skin exam: no rashes or lesions noted Neuro General: oriented to person and patient oriented x3 Cranial nerves: Yes CN's II-XII intact bilaterally Motor exam (neuro): 5/5 motor strength present throughout Extrem General: Yes normal to inspection Psych Appearance: grossly normal Course Course Course Narrative: This is a rapid medical exam: Additional HPI, ROS, PE not included below will be deferred to primary provider. Patient is a 27-year-old female presenting to the emergency department with complaint of shortness of breath and wheezing for the past week. Does not have any asthma medications at home. Reports chest tightness. Denies fevers. Inspiratory and expiratory wheezing throughout.O2 98% on room air in triage, no acute distress. Plan: Covid, flu, CXR Reevaluation(s) Reevaluation #1: Breathing better will discharge on a pump Time: 21:37 Medical Decision Making Differential Diagnosis Differential Diagnoses: The differential diagnosis associated with the presentation includes (asthma, covid, pneumonia, flu were all considered) Admission/Observation Consideration of admission/observation: Escalation of care including admission/observation considered (upon arrival patient was considered for admission) Lab Data MDM Lab Attestation statement: I reviewed the patient's lab results. (covid flu negative) Labs: Lab Results 02/01/23 02/01/23 Range/Units 17:17 17:17 COVID-19 (ANNE MARIE) Negative (Negative) COVID-19 Clin Com See Note Influenza Type A (EILEEN) Negative (Negative) Influenza Type B (EILEEN) Negative (Negative) Influenza A & B Note See Note Independent Interpretation I performed an independent interpretation of an: Plain X-Ray (no infiltrate) Prescription Management I considered prescription management with: Antibiotic (considered but no evidence of pneumonia) and Other (steroids were considered but not indicated) Chronic Conditions Patient?s care impacted by: Other (asthma) Discharge Plan Discharge Clinical Impression: Asthma with acute exacerbation Patient Disposition: Home, Self-Care Instructions: Asthma (ED) Prescriptions: New albuterol sulfate 90 mcg/actuation HFA aerosol inhaler 2 puff inhalation 6XD PRN (Reason: shortness of breath or wheezing) Qty: 8.5 3RF No Action diphenhydramine HCl [Benadryl] 25 mg Capsule 25 mg PO DAILY@0900 albuterol sulfate [ProAir HFA] 90 mcg/actuation Hfa Aerosol Inhaler 2 puff INHALATION Q4-6H PRN (Reason: Shortness Of Breath Or Wheezing) prednisone 20 mg tablet 40 mg PO DAILY Qty: 4 0RF fluticasone propionate [Flovent HFA] 110 mcg/actuation HFA aerosol inhaler 1 puff inhalation BID Qty: 12 0RF Rx Instructions: Rinse mouth well following use oseltamivir [Tamiflu] 75 mg capsule 75 mg PO BID Qty: 7 0RF Referrals: Snow Fried MD [Primary Care Provider] - 1 week
[2023-02-01 17:43] LABS: COVID-19 Test Negative (Negative); IDNOW Serial# 16C4AD1C
[2023-02-01 17:44] LABS: Influenza A Negative (Negative); Influenza B2 Negative (Negative)
[2023-02-01 20:56] VITALS: BP 136/85; PULSE 82; RESP 22; TEMP 37.1; O2SAT 98
[2023-02-01] MEDS: Albuterol/Iprat 2.5/0.5MG 3 ML AMPUL.NEB INHALE (21:48)
== END 2023-02-01 21:54 | disposition home or self-care (01) ==
PROVIDERS: Registered Nurse Emergency; Emergency Provider Emergency Medicine; PCP Pediatrics
DX: J45.901 Unspecified asthma with (acute) exacerbation (principal); Z20.822 Contact with and (suspected) exposure to COVID-19; Z20.828 Contact with and (suspected) exposure to other viral communicable diseases; Z79.899 Other long term (current) drug therapy
CPT/HCPCS: 71046; 87502; 87635; 99283; 99284

== ENCOUNTER 2023-05-29 06:26 | Emergency (ER) | payer OTHER, SELFPAY ==
--- NOTE | ~2023-05-29 | XR_ITS ---
EXAMINATION: XR CHEST CLINICAL INFORMATION: Asthma. Shortness of breath. COMPARISON: Chest radiograph 02/01/2023 TECHNIQUE: Frontal view of the chest was obtained. FINDINGS: The examination is underpenetrated. Making allowances for underpenetrated technique, no focal pulmonary consolidation identified. No effusions or pneumothoraces. Moderate central peribronchial wall thickening is again noted similar to findings present 11/01/2022. XR/XR chest 1V IMPRESSION: *Central peribronchial wall thickening similar to findings present 02/01/2023. These findings may represent the chronic sequela of asthma. Bronchitis could present with similar findings. No focal pulmonary consolidation.
[2023-05-29 06:28] VITALS: BP 148/111; PULSE 110; RESP 16; TEMP 36.8; O2SAT 92; BMI 49.8
--- NOTE | 2023-05-29 06:42 | ECG_ITS ---
Test Reason : SOB Blood Pressure : / mmHG Vent. Rate : 102 BPM Atrial Rate : 102 BPM P-R Int : 142 ms QRS Dur : 082 ms QT Int : 328 ms P-R-T Axes : 072 046 024 degrees QTc Int : 427 ms Sinus tachycardia Otherwise normal ECG No previous ECGs available Referred By: Breanna Chaney Electronically Signed By:SAHIL DIAZ MD
--- NOTE | 2023-05-29 06:47 | ED_ITS ---
HPI - SOB/Dyspnea General Chief Complaint: Dyspnea Stated Complaint: asthma diff breathing Time Seen by Provider: 05/29/23 06:38 Source: patient and family Mode of arrival: ambulatory Limitations: no limitations History of Present Illness HPI Narrative: 27-year-old female with a history of asthma presents to the ER with complaints of cough, wheezing and shortness of breath since last night. Patient reports the last few days she has had URI symptoms and body aches. She has been using her home albuterol with continued symptoms. She has had several hospitalizations for asthma exacerbation as well as pneumothorax. No chest pain, fevers, leg swelling or leg pain Related Data Home Medications Medication Instructions Recorded Confirmed albuterol sulfate 90 mcg/actuation 2 puff inhalation Q4-6H PRN 05/29/22 05/29/22 aerosol inhaler (ProAir HFA) Shortness Of Breath Or Wheezing diphenhydramine HCl 25 mg capsule 25 mg PO DAILY@0900 05/29/22 05/29/22 (Benadryl) Previous Rx's Medication Instructions Recorded fluticasone propionate 110 1 puff inhalation BID #12 grams 05/31/22 mcg/actuation HFA aerosol inhaler (Flovent HFA) oseltamivir 75 mg capsule (Tamiflu) 75 mg PO BID #7 caps 05/31/22 prednisone 20 mg tablet 40 mg (2 x 20 mg) PO DAILY #4 tabs 05/31/22 albuterol sulfate 90 mcg/actuation 2 puff inhalation 6XD PRN 02/01/23 aerosol inhaler shortness of breath or wheezing #8.5 grams albuterol sulfate 2.5 mg/0.5 mL 5 mg inhalation Q6H PRN shortness 05/29/23 solution for nebulization of breath or wheezing #30 ea albuterol sulfate 90 mcg/actuation 2 inh inhalation Q4H PRN shortness 05/29/23 breath activated powder inhaler of breath or wheezing #1 ea nebulizer and compressor #1 ea 05/29/23 prednisone 20 mg tablet 40 mg (2 x 20 mg) PO DAILY #8 tabs 05/29/23 Allergies Allergy/AdvReac Type Severity Reaction Status Date / Time ziprasidone [From Geodon] Allergy Anaphylaxis Verified 05/29/23 06:33 Review of Systems 2 Review of Systems: Yes all other systems are reviewed and are negative Constitutional: Constitutional: Reports no additional constitutional complaints, Reports body ache(s), Denies chills, Denies fever(s), Denies headache(s) and Denies weakness Eyes: Eyes: Reports no additional eye complaints and Denies change in vision ENT: Reports system reviewed and no additional complaints, except as documented, Denies dizziness, Denies headache(s), Reports nasal congestion, Denies nasal discharge and Denies neck pain Cardiovascular: Cardiovascular: Reports no additional cardiovascular complaints, Denies chest pain, Denies leg edema and Reports dyspnea Respiratory: Respiratory: Reports no additional respiratory complaints, Reports cough, Reports dyspnea and Reports wheezing Gastrointestinal: Gastrointestinal: Reports no additional gastrointestinal complaints, Denies abdominal pain, Denies diarrhea, Denies nausea and Denies vomiting Genitourinary: Genitourinary: Reports no additional female genitourinary complaints and Denies urinary incontinence Musculoskeletal: Musculoskeletal: Reports no additional musculoskeletal complaints, Denies back pain, Denies arthralgias, Denies joint swelling, Denies neck pain, Denies numbness and Denies tingling Integumentary/Breasts: Skin/Breast: Reports system reviewed and no additional complaints, except as docu and Denies rash Neurologic: Reports system reviewed and no additional complaints, except as documented, Denies Abnormal speech present, Denies dizziness, Denies headache(s), Denies numbness, Denies tingling and Denies weakness Allergic/Immunologic: Allergic/Immunologic: Reports wheezing PMFSH Past Medical History Attestation statement: The following information was validated with the patient. Source: old records reviewed and nursing notes reviewed Medical History Asthma Surgical History No pertinent past surgical history Family History Family History Other Family history of asthma Social History Social History Alcohol intake: current Alcohol intake frequency: holidays/special occasions only Alcohol type: wine Patient Tobacco Use Status: Never used Tobacco Smoked in Last 30 Days: No Use of substances other than those prescribed or required for medical reasons: No Advance Directives: No Advance Directives Information Provided: No service: No Current occupational status: employed Physical Exam 2 Vital Signs: Vital Signs: Last Vital Signs Temp 98.2 F 05/29/23 08:45 Pulse 122 H 05/29/23 11:19 Resp 28 H 05/29/23 11:19 BP 132/68 05/29/23 11:19 Pulse Ox 97 05/29/23 11:19 O2 Del Method Room Air 05/29/23 11:19 BMI result Body Mass Index 49.8 Const: General: cooperative, healthy appearing, comfortable and no acute distress Orientation/consciousness: patient oriented x3 Limitations: no limitations HEENT: Head: Yes normal to inspection Ears: hearing grossly normal bilaterally General nose exam: Normal external nose present Face and sinus: Yes normal facial exam Mouth: Normal oral and palatal mucosa present Throat: Yes posterior oropharynx normal Eyes: General: appearance normal, both eyes and all related structures P upils: Equal, round and reactive pupils present Neck: Neck: Yes normal visual inspection Chest: Chest palpation & inspection: normal inspection of the chest Resp: Effort & Inspection: tachypneic Auscultation: wheezes Cardio: Rate: regular rate Rhythm: regular rhythm Peripheral pulses: P eripheral pulses 2+ throughout GI: Inspection: Yes normal to inspection Palpation (GI): Soft to palpation and nontender Auscultation: normal bowel sounds Back/Spine/Pelvis: Thoracic/Lumbar Spine: thoracic and lumbar spine normal to inspection Skin: General skin exam: no rashes or lesions noted Neuro: General: patient oriented x3, no focal motor deficits and normal sensation to monofilament Cranial nerves: Yes Equal, round and reactive pupils present Cognition (Neuro): normal cognition Speech: No Abnormal speech present Gait exam (Neuro): Normal gait present Motor exam (neuro): 5/5 motor strength present throughout Extrem: General: Yes normal to inspection, Yes no pedal edema and Yes no calf tenderness Course Course Course Narrative: 0845-patient has received 2 rounds of nebulizer, magnesium and Solu-Medrol. Her chest x-ray shows no acute finding. Her viral testing is negative. She still has some slight wheezing, tachycardia likely secondary to nebulizers, tachypnea. I will monitor her for a period of time prior to determining disposition Reevaluation(s) Reevaluation #1: 1015-patient ambulated with pulse oximeter 98%. Respiratory rate has improved. Patient is still tachycardic but has received several rounds of albuterol which is likely the culprit. She is feeling overall improved. She does still have some mild wheezing but states that she would like to go home. She does not feel that she needs any additional treatments. I will send her home with a prednisone course, albuterol with spacer teaching. I will give her a nebulizer rx but explained she likely wont be able to get this this weekend d/t the holiday. Medications Administered Discontinued Medications Generic Name Dose Route Start Last Admin Trade Name Fariba PRN Reason Stop Dose Admin Albuterol Sulfate 2 puff 05/29/23 10:46 05/29/23 11:05 Albuterol Sulfate 90 Mcg 8 Gm Inhaler INHALE 05/29/23 10:47 2 puff ONCE ONE Administration Albuterol Sulfate 7.5 mg/ 0 mg 05/29/23 06:52 05/29/23 06:59 Albuterol/Ipratropium 3 ml INHALE 05/29/23 06:53 10 each ONCE ONE Administration Sodium Chloride 1,000 mls @ 999 mls/hr 05/29/23 06:42 05/29/23 10:32 Ns IV 05/29/23 07:42 Infused .Q1H1M STA Infusion Magnesium Sulfate 2 gm in 50 mls @ 25 mls/hr 05/29/23 06:42 05/29/23 10:32 Magnesium Sulfate/H2o IV 05/29/23 08:41 Infused ONCE ONE Infusion Levalbuterol HCl 3.75 mg 05/29/23 07:46 05/29/23 07:51 Levalbuterol Hcl 1.25 Mg/3 Ml Vial.Neb INHALE 05/29/23 07:47 3.75 mg ONCE ONE Administration Methylprednisolone Sodium Succinate 125 mg 05/29/23 06:42 05/29/23 06:50 Methylprednisolone Sod Succ 125 Mg/2 Ml Vial IVPUSH 05/29/23 06:43 125 mg ONCE ONE Administration Medical Decision Making Medical Decision Making [facility] Narrative: 27-year-old female with a history of asthma presents to the ER with complaints of cough, wheezing and shortness of breath since last night.? Patient reports the last few days she has had URI symptoms and body aches.? She has been using her home albuterol with continued symptoms.? She has had several hospitalizations for asthma exacerbation as well as pneumothorax.? No chest pain, fevers, leg swelling or leg pain On arrival patient is tachypneic with respiratory rates in the high 20s, she has wheezing in the upper air kumari and is diminished throughout. Will need nebulizer, methylprednisone, magnesium Will obtain labs, EKG, chest x-ray, viral testing. Differential Diagnosis Differential Diagnoses: The differential diagnosis associated with the presentation includes Asthma exacerbation, viral syndrome, pneumonia, pneumothorax, influenza, PE-less likely with no clinical findings concerning for DVT, no hypoxia, no risk factors (OCP use, recent travel/hospitalizations/surgeries or family history of same) Admission/Observation Consideration of admission/observation: Escalation of care including admission/observation considered Lab Data MDM Lab Attestation statement: I reviewed the patient's lab results. 05/29/23 06:48 05/29/23 06:48 Labs: Lab Results 05/29/23 Range/Units 06:48 WBC 6.2 (4.8-10.8) X10*3/uL RBC 5.33 (4.20-5.50) X10*6/uL Hgb 11.0 L (12.0-16.0) g/dl Hct 35.5 L (37.0-47.0) % MCV 66.6 L (80.0-98.0) fL MCH 20.6 L (27.0-33.0) pg MCHC 31.0 (31.0-35.0) g/dl RDW 16.3 H (11.0-16.0) % Plt Count 267 (160-400) X10*3/uL MPV 10.4 (9.4-12.3) fL Immature Gran % (Auto) 0.3 (0.0-0.4) % Neut % (Auto) 73.8 H (45-73) % Lymph % (Auto) 13.7 L (20-40) % [place] % (Auto) 7.4 (2-11) % Eos % (Auto) 4.5 H (0-4) % Baso % (Auto) 0.3 (0-2) % Lymph # (Auto) 0.9 L (1.2-4.9) X10*3/uL [place] # (Auto) 0.5 (0.1-1.2) X10*3/uL Eos # (Auto) 0.3 (0.0-0.4) X10*3/uL Baso # (Auto) 0.0 (0.0-0.2) X10*3/uL Abs Immat Gran (auto) 0.02 (0.00-0.03) X10*3/uL Absolute Neuts (auto) 4.6 (2.0-8.3) x10*3/uL Absolute Nucleated RBC 0.000 (0.0-0.012) X10*3/uL Nucleated RBC % (auto) 0.0 (0.0-0.2) /100WBC PT 14.9 H (11.1-13.3) SEC INR 1.2 H (0.9-1.1) Sodium 141 (135-145) mmol/L Potassium 3.6 (3.3-5.1) mmol/L Chloride 108 (96-108) mmol/L Carbon Dioxide 24 (22-29) mmol/L Anion Gap 13 (12-20) BUN 5 L (9-16) mg/dL Creatinine 0.79 (0.5-1.4) mg/dL Estim Creat Clear Calc 143.0 Estimated GFR > 60 Random Glucose 105 (60-115) mg/dL Calcium 9.5 (8.4-10.2) mg/dL Total Bilirubin 0.7 (0.0-1.0) mg/dL Direct Bilirubin 0.3 (0.0-0.5) mg/dL AST 17 (5-31) U/L ALT 9 (0-31) U/L Alkaline Phosphatase 68 (39-117) U/L Troponin I High Sens < 2.7 (<3.5-17.0) ng/L Total Protein 7.4 (6.5-8.0) g/dL Albumin 4.1 (3.5-5.0) g/dL Influenza Type A (PCR) NEGATIVE (Negative) Influenza Type B (PCR) NEGATIVE (Negative) RSV RNA Qual (PCR) NEGATIVE (Negative) SARS-CoV-2 RNA (RT-PCR) NEGATIVE (Negative) Independent Interpretation I performed an independent interpretation of an: EKG and Plain X-Ray Interpretation: I independently reviewed the EKG which shows sinus tachycardia with a rate of 102, normal NM, normal QRS, normal QT I independently reviewed the x-ray and agree with the radiology report Radiology Impression Discussion of test interpretation with radiology: I have reviewed the radiologist's reading. Radiologist Impression: [address] [address] XRay Report Signed Patient: Zainab Boyd MR#: [id number] : 1995 Acct:[id number] Age/Sex: 27 / F ADM Date: 05/29/23 Loc: HO.ED Attending Dr: Ordering Physician: Akilah Maravilla MD Date of Service: 05/29/23 Procedure(s): XR chest 1V Accession Number(s): [id number] cc: Snow Fried MD; Akilah Maravilla MD~ EXAMINATION: XR CHEST CLINICAL INFORMATION: Asthma. Shortness of breath. COMPARISON: Chest radiograph 02/01/2023 TECHNIQUE: Frontal view of the chest was obtained. FINDINGS: The examination is underpenetrated. Making allowances for underpenetrated technique, no focal pulmonary consolidation identified. No effusions or pneumothoraces. Moderate central peribronchial wall thickening is again noted similar to findings present 11/01/2022. XR/XR chest 1V IMPRESSION: *Central peribronchial wall thickening similar to findings present 02/01/2023. These findings may represent the chronic sequela of asthma. Bronchitis could present with similar findings. No focal pulmonary consolidation. Discharge Plan Discharge Clinical Impression: Asthma with acute exacerbation Patient Disposition: Home, Self-Care Instructions: Asthma (ED) Additional Instructions: Testing for COVID, flu, RSV are negative Your chest x-ray shows no signs of pneumonia or collapsed lung Start your prednisone tomorrow Prescriptions: New albuterol sulfate 90 mcg/actuation aerosol powdr breath activated 2 inh inhalation Q4H PRN (Reason: shortness of breath or wheezing) Qty: 1 0RF prednisone 20 mg tablet 40 mg PO DAILY Qty: 8 0RF albuterol sulfate 2.5 mg/0.5 mL solution for nebulization 5 mg inhalation Q6H PRN (Reason: shortness of breath or wheezing) Qty: 30 0RF (DME) nebulizer and compressor Device See Rx Instructions .Route Qty: 1 0RF Rx Instructions: As directed No Action diphenhydramine HCl [Benadryl] 25 mg Capsule 25 mg PO DAILY@0900 albuterol sulfate [ProAir HFA] 90 mcg/actuation Hfa Aerosol Inhaler 2 puff INHALATION Q4-6H PRN (Reason: Shortness Of Breath Or Wheezing) prednisone 20 mg tablet 40 mg PO DAILY Qty: 4 0RF fluticasone propionate [Flovent HFA] 110 mcg/actuation HFA aerosol inhaler 1 puff inhalation BID Qty: 12 0RF Rx Instructions: Rinse mouth well following use oseltamivir [Tamiflu] 75 mg capsule 75 mg PO BID Qty: 7 0RF albuterol sulfate 90 mcg/actuation HFA aerosol inhaler 2 puff inhalation 6XD PRN (Reason: shortness of breath or wheezing) Qty: 8.5 3RF Referrals: Snow Fried MD [Primary Care Provider] - 1 week Stand Alone Forms: Work/School Release Interventions: ED Discharge Assessment Last Done: 05/29/23 11:19 Discharge Date/Time: 05/29/23 11:20
[2023-05-29] MEDS: Magnesium Sulfate/H2O 2 GM/50 ML PIGGYBACK IV (06:50)
[2023-05-29] MEDS: methylPREDNISolone Sod Succ 125 MG/2 ML VIAL IVPUSH (06:50)
[2023-05-29] MEDS: 0.9 % Sodium Chloride 1,000 ML 999 ML IV (06:53)
[2023-05-29] MEDS: Albuterol Sulfate 7.5 MG, Albuterol/Iprat 2.5/0.5MG 3 ML 3 ML INHALE (06:59)
[2023-05-29 07:00] VITALS: PULSE 103; RESP 26; O2SAT 90
[2023-05-29 07:00] LABS: MANUAL DIFF FLAG NO
[2023-05-29 07:14] LABS: Basophils Percent Auto 0.3 % (0-2); Eosinophils Absolute Auto 0.3 X10*3/uL (0.0-0.4); Eosinophils Percent Auto 4.5 % (0-4); Hematocrit 35.5 % (37.0-47.0); Imm Gran Abs Auto 0.02 X10*3/uL (0.00-0.03); Imm Gran Pct Auto 0.3 % (0.0-0.4); Lymphocytes Absolute Auto 0.9 X10*3/uL (1.2-4.9); Lymphocytes Percent Auto 13.7 % (20-40); Mean Corpuscular Hemoglobin 20.6 pg (27.0-33.0); Mean Corpuscular Volume 66.6 fL (80.0-98.0); Mean Platelet Volume 10.4 fL (9.4-12.3); Monocytes Absolute Auto 0.5 X10*3/uL (0.1-1.2); Monocytes Percent Auto 7.4 % (2-11); Neutrophils Absolute Auto 4.6 x10*3/uL (2.0-8.3); Neutrophils Percent Auto 73.8 % (45-73); Platelet Count 267 X10*3/uL (160-400); Red Blood Count 5.33 X10*6/uL (4.20-5.50); Red Cell Distribution Width 16.3 % (11.0-16.0); White Blood Count 6.2 X10*3/uL (4.8-10.8)
[2023-05-29 07:17] LABS: INTERNATIONAL NORM RATIO 1.2 (0.9-1.1); Prothrombin Time 14.9 SEC (11.1-13.3)
[2023-05-29 07:33] LABS: Troponin-I High Sensitivity < 2.7 ng/L (<3.5-17.0)
[2023-05-29] MEDS: levalbuterol HCL 1.25 MG/3 ML VIAL.NEB 3.75 MG INHALE (07:51)
[2023-05-29 07:52] VITALS: PULSE 122; RESP 16; O2SAT 95
[2023-05-29 08:02] LABS: Alanine Aminotransferase 9 U/L (0-31); Albumin Level 4.1 g/dL (3.5-5.0); Alkaline Phosphatase 68 U/L (39-117); Anion Gap 13 (12-20); Aspartate Amino Transferase 17 U/L (5-31); Bilirubin Direct 0.3 mg/dL (0.0-0.5); Bilirubin Total 0.7 mg/dL (0.0-1.0); Blood Urea Nitrogen 5 mg/dL (9-16); Calcium 9.5 mg/dL (8.4-10.2); Carbon Dioxide 24 mmol/L (22-29); Chloride 108 mmol/L (96-108); Estimated Glomerular Filt Rate > 60; Glucose Random 105 mg/dL (60-115); Potassium 3.6 mmol/L (3.3-5.1); Sodium 141 mmol/L (135-145); Total Protein 7.4 g/dL (6.5-8.0)
[2023-05-29 08:15] LABS: Influenza A PCR NEGATIVE (Negative); Influenza B PCR NEGATIVE (Negative); Resp Syncy Virus RNA Qual PCR NEGATIVE (Negative); SARS COV2 PCR INHOUSE NEGATIVE (Negative)
[2023-05-29 08:45] VITALS: BP 129/68; PULSE 126; RESP 24; TEMP 36.8; O2SAT 97
--- NOTE | 2023-05-29 10:34 | PC.NURSE ---
patient reports improvement in breathing, states she feels 10x's better than when she came in earlier . fluids/mag infused. able to ambulate with pulse ox at 98%.
[2023-05-29 11:05] VITALS: PULSE 122; RESP 36; O2SAT 97
[2023-05-29] MEDS: Albuterol Sulfate 90 MCG 8 GM INHALER 2 PUFF INHALE (11:05)
[2023-05-29 11:19] VITALS: BP 132/68; PULSE 122; RESP 28; O2SAT 97
== END 2023-05-29 11:20 | disposition home or self-care (01) ==
PROVIDERS: Nurse Practitioner Family; Emergency Provider Student in an Organized Health Care Education/Training Program; PCP Pediatrics
DX: J45.901 Unspecified asthma with (acute) exacerbation (principal); Z11.52 Encounter for screening for COVID-19
CPT/HCPCS: 0241U; 36415; 71045; 80048; 80076; 84484; 85025; 85610; 93005; 94640; 96365; 96366; 96375; 99285; J2930; J3475

== ENCOUNTER → 2023-05-29 06:42 | Outpatient (BNV) | payer OTHER, SELFPAY | PROVIDERS: Emergency Provider Student in an Organized Health Care Education/Training Program; PCP Pediatrics; Visit Provider Internal Medicine Cardiovascular Disease | DX: R06.02 Shortness of breath (principal) | CPT/HCPCS: 93010 ==

== ENCOUNTER 2023-08-08 07:57 | Emergency (ER) | payer OTHER, SELFPAY ==
[2023-08-08 07:58] VITALS: BP 142/90; PULSE 89; RESP 19; TEMP 36.1; O2SAT 98; BMI 57.3
--- NOTE | 2023-08-08 08:07 | ED_ITS ---
HPI - Dental/Oral General Chief complaint: Dental/Oral Stated complaint: Dental pain Time Seen by Provider: 08/08/23 08:03 Source: patient Mode of arrival: ambulatory Limitations: no limitations History of Present Illness HPI Narrative: 27 yo female with PMH of asthma here with dental pain and swelling to right lower jaw starting last night, no fevers. has not seen a dentist in 2 to 3 years MD Complaint: tooth pain Location: Tooth # (28) Onset (ago): day(s) (last night) Duration: constant Severity: moderate Relieving factors: nothing Exacerbating factors: chewing, cold and drinking fluids Context: poor dental care Associated symptoms: gum swelling Treatment prior to arrival: none Related Data Home Medications Medication Instructions Recorded Confirmed albuterol sulfate 90 mcg/actuation 2 puff inhalation Q4-6H PRN 05/29/22 05/29/22 aerosol inhaler (ProAir HFA) Shortness Of Breath Or Wheezing diphenhydramine HCl 25 mg capsule 25 mg PO DAILY@0900 05/29/22 05/29/22 (Benadryl) Previous Rx's Medication Instructions Recorded fluticasone propionate 110 1 puff inhalation BID #12 grams 05/31/22 mcg/actuation HFA aerosol inhaler (Flovent HFA) oseltamivir 75 mg capsule (Tamiflu) 75 mg PO BID #7 caps 05/31/22 prednisone 20 mg tablet 40 mg (2 x 20 mg) PO DAILY #4 tabs 05/31/22 albuterol sulfate 90 mcg/actuation 2 puff inhalation 6XD PRN 02/01/23 aerosol inhaler shortness of breath or wheezing #8.5 grams albuterol sulfate 2.5 mg/0.5 mL 5 mg inhalation Q6H PRN shortness 05/29/23 solution for nebulization of breath or wheezing #30 ea albuterol sulfate 90 mcg/actuation 2 inh inhalation Q4H PRN shortness 05/29/23 breath activated powder inhaler of breath or wheezing #1 ea nebulizer and compressor #1 ea 05/29/23 prednisone 20 mg tablet 40 mg (2 x 20 mg) PO DAILY #8 tabs 05/29/23 amoxicillin 875 mg-potassium 1 tab PO BID #14 tabs 08/08/23 clavulanate 125 mg tablet Allergies Allergy/AdvReac Type Severity Reaction Status Date / Time ziprasidone [From Meme] Allergy Anaphylaxis Verified 08/08/23 07:58 Review of Systems Review of Systems: Constitutional : No Fever, No Chills ENT/Mouth : No swallowing difficulty, no change in voice, positive dental pain, positive jaw pain, positive facial swelling Eyes: No Eye Pain, No Swelling Cardiovascular : No Chest Pain, No SOB Respiratory : No Cough, No Sputum Gastrointestinal : No Nausea, No Vomiting, No Diarrhea Genitourinary : No Dysuria Musculoskeletal : No Myalgias Skin : No rash Neuro : No Weakness, No Numbness, No Headache All other systems reviewed and are negative [facility] Past Medical History Attestation statement: The following information was validated with the patient. Source: old records reviewed Medical History Asthma Surgical History No pertinent past surgical history Family History Family History Other Family history of asthma Social History Social History Alcohol intake: current Alcohol intake frequency: holidays/special occasions only Alcohol type: wine Patient Tobacco Use Status: Never used Tobacco service: No Current occupational status: employed Physical Exam Vital Signs: Vital Signs: Last Vital Signs Temp 97 F 08/08/23 07:58 Pulse 89 08/08/23 07:58 Resp 19 08/08/23 07:58 BP 142/90 H 08/08/23 07:58 Pulse Ox 98 08/08/23 07:58 O2 Del Method Room Air 08/08/23 07:58 BMI result Body Mass Index 57.3 Appearance: Alert. Oriented X3. No acute distress. Eyes: Pupils equal, round and reactive to light. ENT: Pharynx no trismus, no sublingual no submandibular swelling, small swelling noted R lower anterior jaw area the gum line near tooth 28/29 is ttp but no pocket amenable to drainage is noted. no purulence noted. Neck: Normal inspection. Neck supple. CVS: Normal heart rate and rhythm. Pulses normal. Respiratory: No respiratory distress. Breath sounds normal. Abdomen: Soft and non-tender. Skin: Skin warm and dry. Normal skin color. Extremities: No lower extremity edema. Neuro: Oriented X 3. No motor deficit. No sensory deficit. Medical Decision Making Medical Decision Making MDM Narrative: 27 yo female with PMH of asthma here with c/o dental pain and swelling likely early abscess vs phlegmon at this time no trismus no sublingual or submandibular swelling - oral augmentin strict precautions to return. Differential Diagnosis Differential Diagnoses: The differential diagnosis associated with the presentation includes toothache, dental abscess Admission/Observation Consideration of admission/observation: Escalation of care including admissio n/observation considered no trismus no significant swelling no airway issues will trial oral antibiotics Independent Historian Clinical information obtained from an independent historian. History obtained from or confirmed by: Friend External Record Review External record reviewed: Inpatient record Prescription Management I considered prescription management with: Antibiotic Discharge Plan Discharge Clinical Impression: Toothache, Dental abscess Patient Disposition: Home, Self-Care Instructions: Dental Abscess (ED), Toothache (ED) Additional Instructions: you have likely an abscess of the tooth but it is not large enough or in an area that I can reach. you do need to see a dentist as soon as possible. if you go to the main entraince of the hospital there is a financial counseling office that may help you get on [facility]. return for worsening swelling, inability to open jaw, swelling into the neck or any other concerns. On amoxicillin-clavulanate, softer bowel movements are to be expected. Call your provider if you move your bowels more than 4 times a day, your bowel movements are almost all liquid, or you get a rash.? Prescriptions: New amoxicillin-pot clavulanate 875-125 mg tablet 1 tab PO BID Qty: 14 0RF No Action diphenhydramine HCl [Benadryl] 25 mg Capsule 25 mg PO DAILY@0900 albuterol sulfate [ProAir HFA] 90 mcg/actuation Hfa Aerosol Inhaler 2 puff INHALATION Q4-6H PRN (Reason: Shortness Of Breath Or Wheezing) prednisone 20 mg tablet 40 mg PO DAILY Qty: 4 0RF fluticasone propionate [Flovent HFA] 110 mcg/actuation HFA aerosol inhaler 1 puff inhalation BID Qty: 12 0RF Rx Instructions: Rinse mouth well following use oseltamivir [Tamiflu] 75 mg capsule 75 mg PO BID Qty: 7 0RF albuterol sulfate 90 mcg/actuation HFA aerosol inhaler 2 puff inhalation 6XD PRN (Reason: shortness of breath or wheezing) Qty: 8.5 3RF albuterol sulfate 90 mcg/actuation aerosol powdr breath activated 2 inh inhalation Q4H PRN (Reason: shortness of breath or wheezing) Qty: 1 0RF prednisone 20 mg tablet 40 mg PO DAILY Qty: 8 0RF albuterol sulfate 2.5 mg/0.5 mL solution for nebulization 5 mg inhalation Q6H PRN (Reason: shortness of breath or wheezing) Qty: 30 0RF (DME) nebulizer and compressor Device See Rx Instructions .Route Qty: 1 0RF Rx Instructions: As directed Stand Alone Forms: Work/School Release
[2023-08-08] MEDS: Amoxicillin/Potassium Clav 875 MG TABLET PO (09:01)
== END 2023-08-08 09:07 | disposition home or self-care (01) ==
PROVIDERS: Emergency Provider Emergency Medicine; PCP Pediatrics
DX: K04.7 Periapical abscess without sinus (principal); K08.89 Other specified disorders of teeth and supporting structures
CPT/HCPCS: 99282; 99283

== ENCOUNTER 2023-08-12 11:12 | Observation (INO) | payer OTHER, SELFPAY ==
[2023-08-12] VITALS (9 sets, daily range): BP systolic 118–149; BP diastolic 56–88; PULSE 111–130; RESP 16–30; TEMP 37–37.7; O2SAT 90–95; BMI 53.4
--- NOTE | ~2023-08-12 | XR_ITS ---
EXAMINATION: XR CHEST CLINICAL INFORMATION: Shortness of breath COMPARISON: 05/29/2023 TECHNIQUE: Frontal view of the chest was obtained. FINDINGS: No significant abnormality is noted involving the heart, lungs, mediastinum, bony thorax or soft tissues. XR/XR chest 1V IMPRESSION: Unremarkable examination.
--- NOTE | 2023-08-12 11:22 | ECG_ITS ---
Test Reason : SOB Blood Pressure : / mmHG Vent. Rate : 129 BPM Atrial Rate : 129 BPM P-R Int : 128 ms QRS Dur : 080 ms QT Int : 302 ms P-R-T Axes : 081 053 013 degrees QTc Int : 442 ms Sinus tachycardia Cannot rule out Inferior infarct , age undetermined Abnormal ECG When compared with ECG of 29-MAY-2023 06:53, No significant change was found Referred By: Fredo Hammer Electronically Signed By:Ciaran Ascencio
--- NOTE | 2023-08-12 11:25 | ED.SOB ---
HPI - SOB/Dyspnea General Chief Complaint: Dyspnea Stated Complaint: CHEST PAIN SOB Time Seen by Provider: 08/12/23 11:16 Source: patient Mode of arrival: EMS History of Present Illness HPI Narrative: 27 years old female with history of asthma presented to the emergency department complaining of increasing shortness of breath and chest pain. Symptoms started yesterday. She was given nebulizer treatment by the supervisor slashing department along 1 aspirin. Denies any fever chills vomiting and diarrhea. MD elicited complaint: shortness of breath and asthma attack Pertinent past history: asthma Onset (ago): day(s) (1) Timing: constant Severity: moderate Exacerbating factors: nothing Relieving factors: nothing Known history of: asthma Associated symptoms: denies other symptoms Treatment prior to arrival: bronchodilator Related Data Previous Rx's Medication Instructions Recorded prednisone 20 mg tablet 40 mg (2 x 20 mg) PO DAILY #4 tabs 05/31/22 albuterol sulfate 90 mcg/actuation 2 puff inhalation 6XD PRN 02/01/23 aerosol inhaler shortness of breath or wheezing #8.5 grams nebulizer and compressor #1 ea 05/29/23 prednisone 20 mg tablet 40 mg (2 x 20 mg) PO DAILY #8 tabs 05/29/23 Allergies Allergy/AdvReac Type Severity Reaction Status Date / Time ziprasidone [From Geodon] Allergy Anaphylaxis Verified 08/12/23 11:29 Review of Systems Constitutional: Constitutional: Reports no additional constitutional complaints Cardiovascular: Cardiovascular: Reports no additional cardiovascular complaints Respiratory: Respiratory: Reports wheezing Gastrointestinal: Gastrointestinal: Reports no additional gastrointestinal complaints Neurologic: Reports system reviewed and no additional complaints, except as documented Allergic/Immunologic: Allergic/Immunologic: Reports wheezing COUNTS INCLUDE 234 BEDS AT THE [facility] Past Medical History COUNTS INCLUDE 234 BEDS AT THE [facility] Narrative: Asthma Medical History Asthma Surgical History No pertinent past surgical history Family History Family History Other Family history of asthma Social History Social History Alcohol intake: current Alcohol intake frequency: holidays/special occasions only Alcohol type: wine Patient Tobacco Use Status: Never used Tobacco Smoked in Last 30 Days: No Use of substances other than those prescribed or required for medical reasons: No Advance Directives: No Advance Directives Information Provided: Yes Nutrition Risks: No Nutritional Risk Patient : No service: No Current occupational status: employed Physical Exam Vital Signs: Vital Signs: Last Vital Signs Temp 98.8 F 08/12/23 14:47 Pulse 124 H 08/12/23 14:47 Resp 18 08/12/23 14:47 BP 149/70 H 08/12/23 14:47 Pulse Ox 92 08/12/23 14:47 O2 Del Method Room Air 08/12/23 14:47 BMI result Body Mass Index 53.4 Const: General: cooperative, well developed, alert, awake and Physically active Nutritional Appearance: well nourished Orientation/consciousness: patient oriented x3 Limitations: no limitations HEENT: Head: Yes normal to inspection Face and sinus: Yes normal facial exam Mouth: Normal oral and palatal mucosa present Neck: Neck: Yes normal visual inspection Chest: Chest palpation & inspection: normal inspection of the chest Resp: Auscultation: wheezes Cardio: Jugular venous distension: no JVD Rate: regular rate Rhythm: regular rhythm GI: Inspection: Yes normal to inspection Palpation (GI): Soft to palpation Skin: General skin exam: no rashes or lesions noted Rashes: no rashes Neuro: General: patient oriented x3 Course Reevaluation(s) Reevaluation #1: Still wheezing, neb# 3 Given also flu positive will admit Time: 14:17 Medications Administered Discontinued Medications Generic Name Dose Route Start Last Admin Trade Name Freq PRN Reason Stop Dose Admin Levalbuterol HCl 3.75 mg/ 0 mg 08/12/23 11:26 08/12/23 11:31 Ipratropium [place] 0.5 mg INHALE 08/12/23 11:27 1 dose ONCE ONE Administration Levalbuterol HCl 2.5 mg/ 0 mg 08/12/23 13:48 08/12/23 13:50 Ipratropium [place] 0.5 mg INHALE 08/12/23 13:49 1 dose ONCE ONE Administration Methylprednisolone Sodium Succinate 125 mg 08/12/23 11:21 08/12/23 11:50 Methylprednisolone Sod Succ 125 Mg/2 Ml Vial IVPUSH 08/12/23 11:22 125 mg ONCE ONE Administration Oseltamivir Phosphate 75 mg 08/12/23 13:53 08/12/23 14:48 Oseltamivir Phosphate 75 Mg Capsule PO 08/12/23 13:54 75 mg ONCE ONE Administration Medical Decision Making Medical Decision Making [facility] Narrative: Patient presented with shortness of breath she has history of asthma will administer bronchodilator Solu-Medrol will do a chest x-ray labs and reassess Differential Diagnosis Differential Diagnoses: The differential diagnosis associated with the presentation includes Exacerbation of asthma/pneumonia/COVID Admission/Observation Consideration of admission/observation: Escalation of care including admission/observation considered Consult Healthcare Provider Management of the patient was discussed with: Hospitalist Lab Data [facility] Lab Attestation statement: I reviewed the patient's lab results. 08/12/23 11:48 08/12/23 11:48 Labs: Lab Results 08/12/23 08/12/23 Range/Units 11:33 11:48 WBC 6.5 (4.8-10.8) X10*3/uL RBC 5.03 (4.20-5.50) X10*6/uL Hgb 10.4 L (12.0-16.0) g/dl Hct 32.8 L (37.0-47.0) % MCV 65.2 L (80.0-98.0) fL MCH 20.7 L (27.0-33.0) pg MCHC 31.7 (31.0-35.0) g/dl RDW 16.3 H (11.0-16.0) % Plt Count 278 (160-400) X10*3/uL MPV 9.8 (9.4-12.3) fL Immature Gran % (Auto) 0.2 (0.0-0.4) % Neut % (Auto) 88.2 H (45-73) % Lymph % (Auto) 6.2 L (20-40) % Andrew % (Auto) 5.4 (2-11) % Eos % (Auto) 0.0 (0-4) % Baso % (Auto) 0.0 (0-2) % Lymph # (Auto) 0.4 L (1.2-4.9) X10*3/uL Andrew # (Auto) 0.4 (0.1-1.2) X10*3/uL Eos # (Auto) 0.0 (0.0-0.4) X10*3/uL Baso # (Auto) 0.0 (0.0-0.2) X10*3/uL Abs Immat Gran (auto) 0.01 (0.00-0.03) X10*3/uL Absolute Neuts (auto) 5.7 (2.0-8.3) x10*3/uL Absolute Nucleated RBC 0.000 (0.0-0.012) X10*3/uL Nucleated RBC % (auto) 0.0 (0.0-0.2) /100WBC D-Dimer High Sensitivty 288 NG/ML Sodium 136 (135-145) mmol/L Potassium 3.7 (3.3-5.1) mmol/L Chloride 106 (96-108) mmol/L Carbon Dioxide 23 (22-29) mmol/L Anion Gap 11 L (12-20) BUN 5 L (9-16) mg/dL Creatinine 0.87 (0.5-1.4) mg/dL Estim Creat Clear Calc 135.6 Estimated GFR > 60 Random Glucose 131 H (60-115) mg/dL Calcium 10.7 H D (8.4-10.2) mg/dL Total Bilirubin 0.5 (0.0-1.0) mg/dL AST 13 (5-31) U/L ALT 8 (0-31) U/L Alkaline Phosphatase 70 (39-117) U/L Troponin I High Sens < 2.7 (<3.5-17.0) ng/L Total Protein 7.9 (6.5-8.0) g/dL Albumin 4.2 (3.5-5.0) g/dL Influenza Type A (PCR) POSITIVE A (Negative) Influenza Type B (PCR) NEGATIVE (Negative) RSV RNA Qual (PCR) NEGATIVE (Negative) SARS-CoV-2 RNA (RT-PCR) NEGATIVE (Negative) Independent Interpretation I performed an independent interpretation of an: EKG and Rhythm Strip Interpretation: Sinus tach rate 129 no ischemic changes Radiology Impression Discussion of test interpretation with radiology: I have reviewed the radiologist's reading. Radiologist Impression: EXAMINATION: XR CHEST CLINICAL INFORMATION: Shortness of breath COMPARISON: 05/29/2023 TECHNIQUE: Frontal view of the chest was obtained. FINDINGS: No significant abnormality is noted involving the heart, lungs, mediastinum, bony thorax or soft tissues. XR/XR chest 1V IMPRESSION: Unremarkable examination. Dictated By: Della Patel MD Signed By: <Electronically signed by Della Patel MD in OV> 08/12/23 1305 Independent Historian Clinical information obtained from an independent historian. History obtained from or confirmed by: EMS Critical Care Time Critical Care Time Critical Care Time: Yes Total Critical Care Time: 60 Attestation: Multiple nebs given taking care of the patient, speaking with the EMS, speaking with the significant other () documentation Discharge Plan Discharge Clinical Impression: Influenza Asthma with acute exacerbation Qualifiers: Asthma severity: moderate Asthma persistence: unspecified Qualified Code(s): J45.901 - Unspecified asthma with (acute) exacerbation Patient Disposition: Admitted As Inpatient
[2023-08-12] MEDS: levalbuterol HCL 3.75 MG, Ipratropium Bromide 0.5 MG INHALE (11:31)
[2023-08-12] MEDS: methylPREDNISolone Sod Succ 125 MG/2 ML VIAL IVPUSH (11:50)
[2023-08-12 11:53] LABS: MANUAL DIFF FLAG NO
[2023-08-12 11:57] LABS: Hematocrit 32.8 % (37.0-47.0); Hemoglobin 10.4 g/dl (12.0-16.0); Imm Gran Abs Auto 0.01 X10*3/uL (0.00-0.03); Imm Gran Pct Auto 0.2 % (0.0-0.4); Lymphocytes Absolute Auto 0.4 X10*3/uL (1.2-4.9); Lymphocytes Percent Auto 6.2 % (20-40); Mean Corpuscular HGB Conc 31.7 g/dl (31.0-35.0); Mean Corpuscular Hemoglobin 20.7 pg (27.0-33.0); Mean Corpuscular Volume 65.2 fL (80.0-98.0); Mean Platelet Volume 9.8 fL (9.4-12.3); Monocytes Absolute Auto 0.4 X10*3/uL (0.1-1.2); Monocytes Percent Auto 5.4 % (2-11); Neutrophils Absolute Auto 5.7 x10*3/uL (2.0-8.3); Neutrophils Percent Auto 88.2 % (45-73); Platelet Count 278 X10*3/uL (160-400); Red Blood Count 5.03 X10*6/uL (4.20-5.50); Red Cell Distribution Width 16.3 % (11.0-16.0); White Blood Count 6.5 X10*3/uL (4.8-10.8)
[2023-08-12 12:02] LABS: D Dimer High Sensitivity 288 NG/ML
[2023-08-12 12:12] LABS: Alanine Aminotransferase 8 U/L (0-31); Albumin Level 4.2 g/dL (3.5-5.0); Alkaline Phosphatase 70 U/L (39-117); Anion Gap 11 (12-20); Aspartate Amino Transferase 13 U/L (5-31); Bilirubin Total 0.5 mg/dL (0.0-1.0); Blood Urea Nitrogen 5 mg/dL (9-16); Calcium 10.7 mg/dL (8.4-10.2); Carbon Dioxide 23 mmol/L (22-29); Chloride 106 mmol/L (96-108); Creatinine Clr Calc Pharmacy 135.6; Estimated Glomerular Filt Rate > 60; Glucose Random 131 mg/dL (60-115); Potassium 3.7 mmol/L (3.3-5.1); Sodium 136 mmol/L (135-145); Total Protein 7.9 g/dL (6.5-8.0)
[2023-08-12 12:20] LABS: Troponin-I High Sensitivity < 2.7 ng/L (<3.5-17.0)
[2023-08-12 12:32] LABS: Influenza A PCR POSITIVE (Negative); Influenza B PCR NEGATIVE (Negative); Resp Syncy Virus RNA Qual PCR NEGATIVE (Negative); SARS COV2 PCR INHOUSE NEGATIVE (Negative)
[2023-08-12] MEDS: levalbuterol HCL 2.5 MG, Ipratropium Bromide 0.5 MG INHALE (13:50)
--- NOTE | 2023-08-12 14:16 | P.HPHOSP_ITS ---
<Statement entered by Isiah García MD - 08/16/23 17:40> the patient was seen and evaluated with ADRIANNA Can. I agree with his note, assessment and plan with the following. A 27 years old with history of asthma presenting with SOB and cough. found to be in asthma exacerbation. Asthma exacerbation IV steroids Albuterol nebulizer O2 as needed Rest of evaluations by PA note. History of Present Illness Date of Service: 08/12/23 Attending physician on admission: Isiah García Chief Complaint: SOB, pleuritic chest pain Pt is a 27-year-old female with a PMH significant for moderate persistent?asthma who presents to the ED with?increased SOB, WELDON, and chest pain since last night. Patient reports symptoms came on suddenly when she noticed she could not breathe and was having significant dyspnea upon exertion. Reports using her home rescue inhaler last night at least 20 times. Had increased productive cough of yellowish sputum. Also experienced fever, chills, myalgias, nausea, and vomiting. Had pleuritic chest pain and tightness associated with cough and deep breathing. No diarrhea or abdominal pain. Patient reports frequent hospitalizations due to asthma exacerbations, with at least 2-3 admissions per year. In the ED pt was tachycardic to 130 tachypneic up to 27, and satting at 95% on RA. Labs were significant for testing positive for influenza type A, otherwise grossly unremarkable and at baseline for patient. No leukocytosis. Stable microcytic anemia of 10.432.8 No significant electrolyte abnormalities. Troponin negative. CXR showed unremarkable examination. EKG demonstrated sinus tachycardia of 129 without evidence of significant ST elevations or depressions. Pt was treated with DuoNebs and Solu-Medrol 125 mg. Pt will be admitted to the hospital under observation for acute asthma exacerbation in the setting of influenza type a infection. Review of Systems 2 Review of Systems: SOB, WELDON Pleuritic chest pain associated with cough and deep breathing Productive cough Fever, chills, myalgias Nausea, vomiting PMFSH Medical History Asthma Family History Other Family history of asthma Surgical History No pertinent past surgical history Social History Alcohol intake: current Alcohol intake frequency: holidays/special occasions only Alcohol type: wine Patient Tobacco Use Status: Never used Tobacco Smoked in Last 30 Days: No Use of substances other than those prescribed or required for medical reasons: No Advance Directives: No Advance Directives Information Provided: Yes Patient : No service: No Current occupational status: employed Meds Allergies Allergy/AdvReac Type Severity Reaction Status Date / Time ziprasidone [From Geodon] Allergy Anaphylaxis Verified 08/12/23 11:29 Physical Exam 2 Vital Signs and Narrative: Vital Signs: Last Vital Signs Temp 99.8 F 08/12/23 11:29 Pulse 128 H 08/12/23 14:13 Resp 16 08/12/23 14:13 BP 133/61 08/12/23 14:13 Pulse Ox 94 08/12/23 14:13 O2 Del Method Room Air 08/12/23 14:13 BMI result Body Mass Index 53.4 Constitutional: Alert, in mild respiratory distress. Mental Status: Oriented to person, place and time. Eyes: Pupils are equal, round, and reactive to light. Ear, Nose, and Throat: Oropharynx clear, mucous membranes moist. Ears and nose without deformities. Trachea midline. Respiratory: Diffuse inspiratory and expiratory wheezing. Some increased work of breathing, especially while talking. Cardiovascular: S1, S2 tachy. Gastrointestinal: Abdomen soft, non-tender, non-distended. Normal bowel sounds. Neurologic: Cranial nerves II-XII are grossly intact bilaterally. No focal neurological deficits. Moves all extremities spontaneously. Skin: Warm, dry. Musculoskeletal: No cyanosis or clubbing. Extremities: No edema. Psychiatric: Normal mood and affect. Results Labs 08/12/23 11:48 08/12/23 11:48 Labs: Laboratory Results - last 24 hr 08/12/23 08/12/23 11:33 11:48 MCV 65.2 L MCH 20.7 L MCHC 31.7 RDW 16.3 H Plt Count 278 MPV 9.8 Immature Gran % (Auto) 0.2 Neut % (Auto) 88.2 H Lymph % (Auto) 6.2 L [place] % (Auto) 5.4 Eos % (Auto) 0.0 Baso % (Auto) 0.0 Lymph # (Auto) 0.4 L [place] # (Auto) 0.4 Eos # (Auto) 0.0 Baso # (Auto) 0.0 Abs Immat Gran (auto) 0.01 Absolute Neuts (auto) 5.7 Absolute Nucleated RBC 0.000 Nucleated RBC % (auto) 0.0 D-Dimer High Sensitivty 288 Anion Gap 11 L Estim Creat Clear Calc 135.6 Estimated GFR > 60 Random Glucose 131 H Calcium 10.7 H D Total Bilirubin 0.5 AST 13 ALT 8 Alkaline Phosphatase 70 Troponin I High Sens < 2.7 Total Protein 7.9 Albumin 4.2 Influenza Type A (PCR) POSITIVE A Influenza Type B (PCR) NEGATIVE RSV RNA Qual (PCR) NEGATIVE SARS-CoV-2 RNA (RT-PCR) NEGATIVE Imaging Radiologist's Impressions: Impressions Chest X-Ray 08/12/23 12:11 IMPRESSION: Unremarkable examination. Assessment and Plan (1) Influenza A: Status: Acute (2) Asthma with acute exacerbation: Qualifiers: Asthma persistence: unspecified Asthma severity: moderate Qualified Code(s): J45.901 - Unspecified asthma with (acute) exacerbation Status: Acute Plan Pt is a 27-year-old female with a PMH significant for moderate persistent?asthma who presents to the ED with?increased SOB, WELDON, and chest pain since last night. Pt will be admitted to the hospital under observation for acute asthma exacerbation in the setting of influenza type a infection. Acute asthma exacerbation in the setting influenza infection Patient with SOB, WELDON, fever, chills, nausea, vomiting, myalgias since last night Patient with continued extra work of breathing and significant wheezing upon auscultation despite receiving multiple rounds of breathing treatments and IV steroids in the ED One will treat with Xopenex q4 and p.r.n., Solu-Medrol 40 mg b.i.d., loratadine, and Mag sulfate 2g x 1 dose Will also treat with Tamiflu, guaifenesin Monitor respiratory status Full Code Attending:?Dr. García DVT Prophylaxis: Lovenox Patient willbe admitted to the hospital under observation for treatment and further evaluation of acute asthma exacerbation in the setting of acute influenza infection. Quality Stroke Does the patient have a stroke diagnosis?: No VTE Prior VTE?: No VTE Risk Level:: Medical - moderate - high VTE Device Contraindication: Treatment Not Indicated VTE Drug Contraindication: N/A - Med Ordered
--- NOTE | 2023-08-12 14:34 | PHA.MEDREC ---
Pharmacy Consult ? Medication Reconciliation Pharmacy has completed the medication reconciliation. Patient confirmed that she only takes an Albuterol inhaler at home. Was prescribed Augmentin recently for her mouth but reports she is no longer taking
[2023-08-12] MEDS: Oseltamivir Phosphate 75 MG CAPSULE PO ×2 (14:48→20:21)
--- NOTE | 2023-08-12 14:49 | PC.NURSE ---
vss and up to date aside from being sinus tachy on the library monitor. pt verbalizing pain in chest subsided at this time but increases to a 4/10 w/ cough or deep inspiration. pt verbalizes feeling much better after medication administration as well as breathing treatments administered via RT. no sob/wob noted at this time. pt positioned upright to promote patent airway. respirations even and unlabored. medication administered per provider order. pt aware of plan of care in regards to pending admission at this time. partner bedside for support. resting comfortably in no apparent distress. plan of care ongoing. call penaloza placed within reach.
[2023-08-12] MEDS: Loratadine 10 MG TABLET PO (15:36)
[2023-08-12] MEDS: Magnesium Sulfate/H2O 2 GM/50 ML PIGGYBACK IV (15:36)
[2023-08-12] MEDS: Enoxaparin Sodium 40 MG/0.4 ML SYRINGE SUBCUT (15:36)
[2023-08-12] MEDS: 0.9 % Sodium Chloride Flush 3 ML SYRINGE IVFLUSH (15:40)
[2023-08-12] MEDS: levalbuterol HCL 1.25 MG/3 ML VIAL.NEB INHALE ×2 (15:42→20:17)
[2023-08-12] MEDS: Acetaminophen 325 MG TABLET 650 MG PO (18:50)
--- NOTE | 2023-08-12 18:50 | PC.NURSE ---
pt verbalizing pain level in chest increased to a 8/10 d/t increase in coughing. prn tylenol administered provider order. effectivness pending.
--- NOTE | 2023-08-12 19:54 | MHC.EDTECH ---
This tech took over care of patient at 1900,hourly rounds and vitals completed,patient's HR is elevated and Resp. rate RN is aware. Patient has a food tray on the outside of the room,patient requested it, this tech will warm it up for patient. family at bedside and call penaloza in reach
--- NOTE | 2023-08-12 20:10 | PC.NURSE ---
pt sat dropped while eating, pt was at 94% on room air. and dropped to 88%. hr elevated resp called for treatment and 3l nc applied with good effect sat improving to 93%
[2023-08-12] MEDS: methylPREDNISolone Sod Succ 40 MG/ML VIAL IVPUSH (20:21)
--- NOTE | 2023-08-12 21:00 | MHC.CM.ED ---
Addendum entered by Trudi Anglin 08/12/23 22:02: DIAZ 08/11. Patient assigned to observation. Lives with her . Employed. No DME or services. No PCP. Does not drive. Uses public transportation. Independent. States on waiting list, as provider is not accepting new patients. CM gave patient provider list for [facility] and contact information for [facility]. Encouraged patient to call. To stress that she has asthma and needs the first available appointment with a provider that is taking new patients. Pt aware appointment may take a month or 2, but to take what they have. Stress that she was hospitalized and needs follow up. Both practices are on the bus line. D/C plan: Home without services. Original Note: HCP reviewed, completed and signed. Copies given. Uploaded into [facility] and [facility] Expanse. HCP/ Tashi MeeksOliver ([phone]).
--- NOTE | 2023-08-12 22:10 | MHC.EDTECH ---
Hourly rounds and vitals completed,patient ate 75% of dinner, patient got up to commode and urinated a moderate amount. Patient is resting at this time,family at bedside,call ca hennessy reach
[2023-08-13] MEDS: 0.9 % Sodium Chloride Flush 3 ML SYRINGE IVFLUSH ×2 (01:51→08:54)
[2023-08-13 02:01] VITALS: BP 141/75; PULSE 109; PULSE 112; RESP 16; RESP 22; TEMP 37.2; O2SAT 93; O2SAT 94
[2023-08-13] MEDS: guaiFENesin DM 200/20/10 ML 10 ML SYRUP PO (02:01)
[2023-08-13] MEDS: Acetaminophen 325 MG TABLET 650 MG PO (02:01)
[2023-08-13] MEDS: levalbuterol HCL 1.25 MG/3 ML VIAL.NEB INHALE ×3 (02:01→11:20)
[2023-08-13] MEDS: Docusate Sodium 100 MG CAPSULE PO (02:18)
[2023-08-13 07:30] VITALS: BP 131/81; PULSE 97; RESP 20; TEMP 36.7; O2SAT 95
[2023-08-13 07:52] VITALS: PULSE 95; RESP 18; O2SAT 91
[2023-08-13] MEDS: Loratadine 10 MG TABLET PO (08:54)
[2023-08-13] MEDS: Oseltamivir Phosphate 75 MG CAPSULE PO (08:54)
[2023-08-13] MEDS: methylPREDNISolone Sod Succ 40 MG/ML VIAL IVPUSH (08:54)
[2023-08-13 11:20] VITALS: RESP 18; O2SAT 94
--- NOTE | 2023-08-13 13:45 | PC.NURSE ---
Pt ambulated in the hallway on room air and maintained O2 Sats of 94%-95%
--- NOTE | 2023-08-13 14:26 | MHC.CM.PN ---
PT TO DC HOME TODAY WITH NO SERVICES
--- NOTE | 2023-08-24 14:30 | PM.DS ---
DS: Providers Provider Date of Service: 08/13/23 Date of admission: 08/12/23 14:47 Primary care physician: Unknown Physician DS: Diagnosis Discharge Diagnosis (1) Influenza A: Status: Acute (2) Asthma with acute exacerbation: Status: Acute DS: Summary Hospital Course Hospital Course: Admission note HPI Pt is a 27-year-old female with a PMH significant for moderate persistent?asthma who presents to the ED with?increased SOB, WELDON, and chest pain since last night. Patient reports symptoms came on suddenly when she noticed she could not breathe and was having significant dyspnea upon exertion. Reports using her home rescue inhaler last night at least 20 times. Had increased productive cough of yellowish sputum. Also experienced fever, chills, myalgias, nausea, and vomiting. Had pleuritic chest pain and tightness associated with cough and deep breathing. No diarrhea or abdominal pain. Patient reports frequent hospitalizations due to asthma exacerbations, with at least 2-3 admissions per year. In the ED pt was tachycardic to 130 tachypneic up to 27, and satting at 95% on RA. Labs were significant for testing positive for influenza type A, otherwise grossly unremarkable and at baseline for patient. No leukocytosis. Stable microcytic anemia of 10.432.8 No significant electrolyte abnormalities. Troponin negative. CXR showed unremarkable examination. EKG demonstrated sinus tachycardia of 129 without evidence of significant ST elevations or depressions. Pt was treated with DuoNebs and Solu-Medrol 125 mg. Pt will be admitted to the hospital under observation for acute asthma exacerbation in the setting of influenza type a infection. Hospital course The patient was admitted for treatment of asthma exacerbation in the setting influenza infection. She was treated with IV steroids, nebulizers, Tamiflu with good response overnight in hospital. next morning she was on room air and feeling good. She was able to ambulate on room air with no reported dyspnea or SOB. To finish Tamiflu, steroids at home. New Fluticasone inhalor prescribed. Time Attestation Discharge Coordination Time (in mins): 20 Quality: Safe Use of Opioids Does Pt have an Active Cancer Diagnosis on the Problem List?: No Quality: Stroke Does the patient have a stroke diagnosis?: No Physical Exam Vital Signs: Vital Signs: Last Vital Signs Temp 98.0 F 08/13/23 07:30 Pulse 95 08/13/23 07:52 Resp 18 08/13/23 11:20 BP 131/81 08/13/23 07:30 Pulse Ox 95 08/13/23 07:30 O2 Del Method Nasal Cannula 08/13/23 07:30 O2 Flow Rate 2 08/13/23 07:30 BMI result Body Mass Index 53.4 Const: Other: Constitutional : Awake, interactive, morbidly obese, not in distress Neck : Normal inspection, Supple Cardiovascular : RRR, no JVP, no lower extremity edema Respiratory :fair bilateral air entry, no crackles, wheezes or rhonchi Gastrointestinal: soft, lax, Normal bowel sounds, Non tender Skin : Warm, Dry Neurological : Alert & oriented x3, No focal deficit DS: Data Imaging Chest x-ray: Radiologist's impression: ITS Impressions Chest X-Ray 08/12/23 12:11 IMPRESSION: Unremarkable examination. Discharge Plan Discharge Anticipated Discharge Date/Time: 08/13/23 12:55 Patient Disposition: Home, Self-Care Discharge Diagnosis: Influenza A Asthma exacerbation Referrals: Physician,Unknown J [Primary Care Provider] - 1 Week Discharge Medications: New dextromethorphan-guaifenesin 10-100 mg/5 mL Syrup 10 ml PO Q4H PRN (Reason: Cough) Qty: 237 1RF oseltamivir [Tamiflu] 75 mg Capsule 75 mg PO Q12H Qty: 8 0RF prednisone 20 mg tablet 40 mg PO DAILY Qty: 8 0RF fluticasone propionate 110 mcg/actuation HFA aerosol inhaler 1 puff inhalation BID Qty: 12 1RF Continued prednisone 20 mg tablet 40 mg PO DAILY Qty: 4 0RF albuterol sulfate 90 mcg/actuation HFA aerosol inhaler 2 puff inhalation 6XD PRN (Reason: shortness of breath or wheezing) Qty: 8.5 3RF prednisone 20 mg tablet 40 mg PO DAILY Qty: 8 0RF (DME) nebulizer and compressor Device See Rx Instructions .Route Qty: 1 0RF Rx Instructions: As directed Discharge Orders: Discharge Order (Routine); Ordered 08/13/23 Ordered By: Isiah García Diet: Advance to usual diet Activity on Discharge: As tolerated Stand Alone Forms: Patient Portal Discharge page, Work/School Release Care Plan Goals: Read below Health Concerns: Read below Plan of Treatment: Read below Assessment: You were admitted to the hospital for evaluation of difficulties breathing. Found to have Flu A infection with asthma exacerbation. Discharge Date/Time: 08/13/23 14:56
== END 2023-08-13 14:56 | disposition home or self-care (01) ==
LOC: HO.ED 14:05 → HO.EDOVER 15:08 → HO.S3 23:52
PROVIDERS: Admitting Provider Student in an Organized Health Care Education/Training Program; Emergency Provider Emergency Medicine; Visit Provider Student in an Organized Health Care Education/Training Program
DX: J10.1 Influenza due to other identified influenza virus with other respiratory manifestations (principal); J45.901 Unspecified asthma with (acute) exacerbation; R06.02 Shortness of breath; R07.9 Chest pain, unspecified
CPT/HCPCS: 0241U; 36415; 71045; 80053; 84484; 85025; 85379; 93005; 94640; 96365; 96366; 96372; 96375; 96376; 99221; 99285; J1650; J2920; J2930; J3475

== ENCOUNTER → 2023-08-12 11:22 | Outpatient (BNV) | payer OTHER, SELFPAY | PROVIDERS: Admitting Provider Student in an Organized Health Care Education/Training Program; Emergency Provider Emergency Medicine; Visit Provider Internal Medicine Cardiovascular Disease | DX: R06.02 Shortness of breath (principal) | CPT/HCPCS: 93010 ==

== ENCOUNTER → 2023-08-12 14:47 | Outpatient (BNV) | payer OTHER, SELFPAY | PROVIDERS: Admitting Provider Student in an Organized Health Care Education/Training Program; Emergency Provider Emergency Medicine; Visit Provider Student in an Organized Health Care Education/Training Program | DX: J10.1 Influenza due to other identified influenza virus with other respiratory manifestations (principal); J45.901 Unspecified asthma with (acute) exacerbation | CPT/HCPCS: 99222; 99238 ==

== ENCOUNTER 2023-09-20 09:21 | Emergency (ER) | payer OTHER, SELFPAY ==
--- NOTE | ~2023-09-20 | XR_ITS ---
EXAMINATION: XR CHEST CLINICAL INFORMATION: Chest tightness COMPARISON: 08/12/2023 and 05/29/2023 TECHNIQUE: 2 views of the chest were obtained. FINDINGS: Heart size is normal. There is no evidence of CHF. Marked bronchial wall thickening is seen with some mild perihilar increased density most marked in the right infrahilar region. No definite focal consolidation is seen. No pleural effusions or lung masses. Similar findings have been seen in the past. XR/XR chest 2V IMPRESSION: Bronchial wall thickening with perihilar increased density. Findings may be due to bronchitis. No focal consolidation is seen.
[2023-09-20 09:40] VITALS: BP 144/93; PULSE 112; RESP 22; TEMP 37.4; O2SAT 97; BMI 54.7
[2023-09-20] MEDS: Albuterol Sulfate 5 MG, Albuterol/Iprat 2.5/0.5MG 3 ML 3 ML INHALE (09:57)
[2023-09-20 09:59] VITALS: PULSE 115; RESP 28; O2SAT 97
[2023-09-20 11:31] LABS: Influenza A PCR NEGATIVE (Negative); Influenza B PCR NEGATIVE (Negative); Resp Syncy Virus RNA Qual PCR NEGATIVE (Negative); SARS COV2 PCR INHOUSE NEGATIVE (Negative)
[2023-09-20] MEDS: dexAMETHasone sod phosphate 10 MG/ML VIAL IVPUSH (11:55)
[2023-09-20 12:10] VITALS: PULSE 105; RESP 18; O2SAT 98
[2023-09-20] MEDS: Albuterol Sulfate 2.5 MG, Albuterol/Iprat 2.5/0.5MG 3 ML 3 ML INHALE (12:10)
--- NOTE | 2023-09-20 12:20 | ED_ITS ---
HPI - URI/Sore Throat General Chief Complaint: Upper Respiratory Symptoms Stated Complaint: Diff Breathing Cough Chest Tightness Time Seen by Provider: 09/20/23 11:28 Source: patient Mode of arrival: ambulatory Limitations: no limitations History of Present Illness HPI Narrative: 27 year old female with pmhx significant for asthma presents to the ED today for evaluation of wheezing and shortness of breath x1 day. She admits to recent cold that has been messing with my asthma . She has been using her home inhaler with little relief. She has been taking Tylenol Cold and Flu as well without improvement. Admits to feeling warm yesterday without documented temperature. Denies chills, sore throat, nasal congestion, chest pain, calf pain/ tenderness, N/V/D, abd pain. Denies recent travel or long car rides. Denies known sick contacts. Related Data Previous Rx's ?Medication ?Instructions ?Recorded prednisone 20 mg tablet 40 mg (2 x 20 mg) PO DAILY #4 tabs 05/31/22 albuterol sulfate 90 mcg/actuation 2 puff inhalation 6XD PRN 02/01/23 aerosol inhaler shortness of breath or wheezing #8.5 grams nebulizer and compressor #1 ea 05/29/23 prednisone 20 mg tablet 40 mg (2 x 20 mg) PO DAILY #8 tabs 05/29/23 dextromethorphan-guaifenesin 10 10 ml PO Q4H PRN Cough #237 mL 08/13/23 mg-100 mg/5 mL oral syrup fluticasone propionate 110 1 puff inhalation BID #12 grams 08/13/23 mcg/actuation HFA aerosol inhaler oseltamivir 75 mg capsule (Tamiflu) 75 mg PO Q12H #8 caps 08/13/23 prednisone 20 mg tablet 40 mg (2 x 20 mg) PO DAILY #8 tabs 08/13/23 albuterol sulfate 90 mcg/actuation 2 inh inhalation .q20 PRN 09/20/23 aerosol inhaler shortness of breath or wheezing #8.5 grams azithromycin 250 mg tablet See Rx Instructions PO .COMPLEX #6 09/20/23 (Zithromax Z-Kian) tabs levalbuterol HCl 1.25 mg/3 mL 1.25 mg (3 mL) inhalation Q6H PRN 09/20/23 solution for nebulization shortness of breath or wheezing #72 mL prednisone 50 mg tablet 50 mg PO DAILY 5 days #5 tabs 09/20/23 Allergies Allergy/AdvReac Type Severity Reaction Status Date / Time ziprasidone [From Geodon] Allergy Severe Anaphylaxis Verified 09/20/23 09:42 oseltamivir [From Tamiflu] Allergy Mild Hives Verified 09/20/23 09:39 Review of Systems Review of Systems: Constitutional: No fever, chills, fatigue, night sweats, weight changes ENT/Mouth: No ear pain, hearing loss, nasal congestion, sinus pain, rhinorrhea, sore throat Eyes: No eye pain, swelling, redness, vision changes, discharge Cardio: No chest pain, palpitations, WELDON, orthopnea, peripheral edema Pulm: No SOB, cough, sputum, hemoptysis, +wheezing, +dyspnea GI: No nausea, vomiting, hematemesis, abdominal pain, diarrhea, constipation, hematochezia, melena : No irregular bleeding, dysuria, frequency, urgency, hesitancy, hematuria, flank pain, urinary flow changes, urinary incontinence or retention MSK: No back pain, neck pain, joint pain, myalgias Skin: No lesions, rashes Neuro: No weakness, numbness, paresthesias, LOC, dizziness, headache Psych: No anxiety/panic, depression, SI/HI, AH/VH All other systems reviewed and are negative. [facility] Past Medical History Attestation statement: The following information was validated with the patient. Source: old records reviewed and nursing notes reviewed Medical History Asthma Surgical History No pertinent past surgical history Family History Family History Other Family history of asthma Social History Social History Alcohol intake: current Alcohol intake frequency: holidays/special occasions only Alcohol type: wine Patient Tobacco Use Status: Never used Tobacco Advance Directives: Yes Advance Directives on File: Yes Advance Directives Date on File: 08/12/23 service: No Current occupational status: employed Physical Exam Vital Signs: Vital Signs: Last Vital Signs Temp 99.4 F 09/20/23 09:40 Pulse 118 H 09/20/23 12:59 Resp 20 09/20/23 12:59 BP 144/93 H 09/20/23 09:40 Pulse Ox 97 09/20/23 09:40 O2 Del Method Room Air 09/20/23 09:40 BMI result Body Mass Index 54.7 Const: General: cooperative, healthy appearing, comfortable and no acute distress Orientation/consciousness: patient oriented x3 Limitations: no limitations HEENT: Other: Posterior oropharynx without erythema or edema. No tonsillar exudates or peritonsillar masses. Uvula midline. Airway patent. Controlling secretions. Head: Yes normal to inspection, Yes No palpable skull fracture present, Yes normocephalic and Yes atraumatic Eyes: General: appearance normal, both eyes and all related structures Conjunctivae: conjunctivae normal Sclerae: sclerae normal Pupils: Equal, round and reactive pupils present Neck: Neck: Yes normal visual inspection, Yes full ROM and Yes no lymphadenopathy Chest: Chest palpation & inspection: normal inspection of the chest and normal palpation of entire chest wall Resp: Other: + diffuse expiratory wheezes Effort & Inspection: normal respiratory effort, able to speak in complete sentences, no respiratory distress, no tripod positioning and no use of accessory muscles Cardio: Rate: regular rate Rhythm: regular rhythm GI: Inspection: Yes normal to inspection Skin: General skin exam: no rashes or lesions noted Neuro: General: patient oriented x3 and gait normal Cranial nerves: Yes Equal, round and reactive pupils present Extrem: General: Yes normal to inspection Course Course Course Narrative: 1335-- patient has tested negative for COVID, flu, RSV. Chest x-ray shows evidence of bronchitis. Discussed all workup results with patient. Breathing has improved. Lungs are now CTA bilaterally. Will send her home with prednisone and Z-Kian. She is requesting refill of her albuterol. Educated on safe albuterol use. After discussion with respiratory therapy, Xopenex for nebulizer will be sent to pharmacy as well. Patient has remained stable throughout ED visit today - tachy secondary to breathing treatments. Discussed worrisome signs and symptoms and when to return to the ED. All questions answ ered at this time. Patient is agreeable with disposition and stable for discharge. Medications Administered Discontinued Medications Generic Name Dose Route Start Last Admin Trade Name Freq PRN Reason Stop Dose Admin Albuterol Sulfate 5 mg/ 0 mg 09/20/23 09:53 09/20/23 09:57 Albuterol/Ipratropium 3 ml INHALE 09/20/23 09:54 1 each ONCE ONE Administration Albuterol Sulfate 2.5 mg/ 0 mg 09/20/23 12:08 09/20/23 12:10 Albuterol/Ipratropium 3 ml INHALE 09/20/23 12:09 1 dose ONCE ONE Administration Levalbuterol HCl 2.5 mg/ 0 mg 09/20/23 12:55 09/20/23 12:58 Ipratropium [place] 0.5 mg INHALE 09/20/23 12:56 1 dose ONCE ONE Administration Dexamethasone Sodium Phosphate 10 mg 09/20/23 11:35 09/20/23 11:55 Dexamethasone Sod Phosphate 10 Mg/Ml Vial IVPUSH 09/20/23 11:36 10 mg ONCE ONE Administration Medical Decision Making Medical Decision Making [facility] Narrative: 27 year old female with pmhx significant for asthma presents to the ED today for evaluation of wheezing and shortness of breath x1 day. Patient hypertensive. Initially tachycardic and tachypneic. Afebrile. She is nontoxic-appearing and in no acute distress. No tripoding. Nice of accessory muscles. Diffuse expiratory wheezes on exam. Regular rhythm, tachycardic. No calf tenderness bilaterally. Posterior oropharynx WNL. Bilateral EACs and TMs WNL. Differential diagnosis includes asthma exacerbation, bronchitis, viral syndrome, pneumonia. Unlikely acute respiratory distress syndrome, pleural effusion, ACS, arrhythmia, PE. Plan for viral swabs, chest x-ray, breathing treatment and re-evaluation. Differential Diagnosis Differential Diagnoses: The differential diagnosis associated with the presentation includes as above. Admission/Observation not indicted Lab Data [facility] Lab Attestation statement: I reviewed the patient's lab results. as above. Labs: Lab Results 09/20/23 Range/Units 10:43 Influenza Type A (PCR) NEGATIVE (Negative) Influenza Type B (PCR) NEGATIVE (Negative) RSV RNA Qual (PCR) NEGATIVE (Negative) SARS-CoV-2 RNA (RT-PCR) NEGATIVE (Negative) Independent Interpretation I performed an independent interpretation of an: Plain X-Ray Interpretation: Chest x-ray does not exhibit consolidation or infiltrate, agree with radiologist's interpretation. Radiology Impression Discussion of test interpretation with radiology: I have reviewed the radiologist's reading. Radiologist Impression: EXAMINATION: XR CHEST CLINICAL INFORMATION: Chest tightness COMPARISON: 08/12/2023 and 05/29/2023 TECHNIQUE: 2 views of the chest were obtained. FINDINGS: Heart size is normal. There is no evidence of CHF. Marked bronchial wall thickening is seen with some mild perihilar increased density most marked in the right infrahilar region. No definite focal consolidation is seen. No pleural effusions or lung masses. Similar findings have been seen in the past. XR/XR chest 2V IMPRESSION: Bronchial wall thickening with perihilar increased density. Findings may be due to bronchitis. No focal consolidation is seen. Independent Historian Clinical information obtained from an independent historian. History obtained from or confirmed by: Friend External Record Review External record reviewed: Inpatient record, Office record, Outpatient record, Prior outpatient labs, Prior outpatient radiology, Primary care record and Outside ED record Prescription Management I considered prescription management with: Pain Medication, Antibiotic (Z-Kian) and Other (Prednisone) Chronic Conditions Patient?s care impacted by: Other (Asthma) Social Determinants Patient?s care significantly limited by Social Determinants of Health including: Other Social Determinant of Health Critical Care Time Critical Care Time Critical Care Time: Yes Total Critical Care Time: 45 Attestation: Critical care time in the amount of 45 minutes has been provided to the patient in terms of direct patient care, frequent reevaluation, review and interpretation of medical data and results, and management of potentially life- threatening conditions. This is all outside of any medical procedures. Discharge Plan Discharge Clinical Impression: Acute bronchitis Qualifiers: Bronchitis organism: unspecified organism Qualified Code(s): J20.9 - Acute bronchitis, unspecified Patient Disposition: Home, Self-Care Instructions: Acute Bronchitis (ED), Wheezing (ED) Additional Instructions: You tested negative for COVID, flu, RSV. Your provided with a breathing treatment and steroid in ED. Your chest x-ray shows evidence of bronchitis, or inflammation/infection of the airways. Prednisone as an sent to your pharmacy for you to take over the next 5 days starting tomorrow. Azithromycin (Z-Kian) is an antibiotic that has been sent to your pharmacy. Take this over the next 5 days as prescribed. Do not finish this early or skip any doses as this may cause infection to worsen. Xopenex for nebulizer has been sent to your pharmacy. Use this as directed by respiratory therapy. Please follow-up with primary care provider. If symptoms persist or worsen, return to the ED. In the case of an emergency call 911. Prescriptions: New prednisone 50 mg tablet 50 mg PO DAILY 5 Days Qty: 5 0RF azithromycin [Zithromax Z-Kian] 250 mg tablet See Rx Instructions .ROUTE .COMPLEX Qty: 6 0RF Rx Instructions: For 250 mg dose pack: take 500 mg today (day 1), then 250 mg for 4 days (days 2-5) albuterol sulfate 90 mcg/actuation HFA aerosol inhaler 2 inh inhalation .q20 PRN (Reason: shortness of breath or wheezing) Qty: 8.5 0RF levalbuterol HCl 1.25 mg/3 mL solution for nebulization 1.25 mg inhalation Q6H PRN (Reason: shortness of breath or wheezing) Qty: 72 0RF No Action prednisone 20 mg tablet 40 mg PO DAILY Qty: 4 0RF albuterol sulfate 90 mcg/actuation HFA aerosol inhaler 2 puff inhalation 6XD PRN (Reason: shortness of breath or wheezing) Qty: 8.5 3RF prednisone 20 mg tablet 40 mg PO DAILY Qty: 8 0RF (DME) nebulizer and compressor Device See Rx Instructions .Route Qty: 1 0RF Rx Instructions: As directed dextromethorphan-guaifenesin 10-100 mg/5 mL Syrup 10 ml PO Q4H PRN (Reason: Cough) Qty: 237 1RF oseltamivir [Tamiflu] 75 mg Capsule 75 mg PO Q12H Qty: 8 0RF prednisone 20 mg tablet 40 mg PO DAILY Qty: 8 0RF fluticasone propionate 110 mcg/actuation HFA aerosol inhaler 1 puff inhalation BID Qty: 12 1RF Stand Alone Forms: Work/School Release Print Language: Chinese
[2023-09-20] MEDS: levalbuterol HCL 2.5 MG, Ipratropium Bromide 0.5 MG INHALE (12:58)
[2023-09-20 12:59] VITALS: PULSE 118; RESP 20; O2SAT 97
[2023-09-20 14:12] VITALS: BP 141/88; PULSE 106; RESP 18; TEMP 36.8; O2SAT 96
== END 2023-09-20 14:14 | disposition home or self-care (01) ==
PROVIDERS: Emergency Provider Emergency Medicine
DX: J20.9 Acute bronchitis, unspecified (principal); J45.909 Unspecified asthma, uncomplicated
CPT/HCPCS: 0241U; 71046; 94640; 99283; 99285; J1100

== ENCOUNTER 2024-07-07 16:12 | Inpatient (IN) | payer OTHER, SELFPAY ==
[2024-07-07] VITALS (8 sets, daily range): BP systolic 115–120; BP diastolic 45–88; PULSE 102–118; RESP 20–40; TEMP 36.3–37.8; O2SAT 88–95; BMI 53.2
--- NOTE | ~2024-07-07 | XR_ITS ---
CLINICAL HISTORY: cough 1 view chest x-ray Comparison: CR/KY/SR - XR CHEST 2V - 09/20/23 09:54 EDT Findings: Moderate patchy airspace opacity within the right lung base. Normal size heart. No acute fracture. IMPRESSION: Right lung base pneumonia. This document has been electronically signed by: Chloe Pollard MD on 07/07/2024 17:29:38
--- NOTE | 2024-07-07 16:41 | ED_ITS ---
HPI - General Adult General Chief complaint: Dyspnea Stated complaint: dysnea, tachypneic Time Seen by Provider: 07/07/24 16:35 Source: patient, EMS, RN notes reviewed and old records reviewed Mode of arrival: EMS Limitations: no limitations History of Present Illness ED Provider: Shankar HPI narrative: Patient is a 28-year-old female with history of asthma presenting to the emergency department with complaint shortness of breath for the past 2 days. 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 Denies recent fevers. Denies chest pain or palpitations. Given breathing treatment from EMS en route to the ED. complaint: dyspnea Onset (ago): day(s) Related Data Home Medications ?Medication ?Instructions ?Recorded ?Confirmed albuterol sulfate 90 mcg/actuation 2 inh inhalation Q2H PRN shortness 07/08/24 07/08/24 aerosol inhaler of breath or wheezing epinephrine 0.125 mg/actuation 1 puff inhalation Q4H PRN 07/08/24 07/08/24 aerosol inhaler (Primatene Mist) Shortness Of Breath Or Wheezing Previous Rx's ?Medication ?Instructions ?Recorded nebulizer and compressor #1 ea 05/29/23 nebulizer accessories ([place] #1 ea 09/20/23 Choice Nebulizer Kit-Adult) Allergies Allergy/AdvReac Type Severity Reaction Status Date / Time ziprasidone [From Geodon] Allergy Severe Anaphylaxis Verified 07/07/24 16:40 oseltamivir [From Tamiflu] Allergy Mild Hives Verified 07/07/24 16:40 Review of Systems 2 Review of Systems: As per HPI. Yes all other systems are reviewed and are negative PMFSH Past Medical History Medical History Asthma Surgical History No pertinent past surgical history Family History Family History Other Family history of asthma Social History Social History Household Members: Spouse Housing: House Do you presently have visiting nurse or other home services: No Alcohol intake: current Alcohol intake frequency: holidays/special occasions only Alcohol type: wine Patient Tobacco Use Status: Never used Tobacco Substance Use Type: Marijuana and Painkillers Advance Directives Date on File: 08/12/23 service: No Current occupational status: employed Physical Exam ED Vital Signs: Vital Signs - 24 hr 07/07/24 16:38 07/07/24 16:44 07/07/24 16:46 Temperature 99.9 F Pulse Rate 106 H 104 H 110 H Respiratory Rate 40 H 24 H 24 H Blood Pressure 115/45 L 115/45 L Pulse Oximetry 88 L 91 L Oxygen Delivery Method Room Air Oxymask Oxygen Flow Rate 9 07/07/24 18:19 07/07/24 19:17 Temperature 100.0 F Pulse Rate 118 H 110 H Respiratory Rate 22 H Blood Pressure 118/88 Pulse Oximetry 90 L 95 Oxygen Delivery Method Nasal Cannula Nasal Cannula Oxygen Flow Rate 8 BMI result Body Mass Index 53.2 Vital signs have been reviewed and appear to be correct. Blood pressure normal. Heart rate slightly tachycardic. Respiratory rate tachypneic. Temperature normal. Oxygen saturation hypoxic on room air and O2. Const General: cooperative, alert, awake and in distress moderate and respiratory Nutritional Appearance: average body habitus Orientation/consciousness: patient oriented x3 HENMT Head: Yes normocephalic and Yes atraumatic Ears: hearing grossly normal bilaterally and external ears normal General nose exam: Normal external nose present and Normal nasal mucous membranes and turbinates present Mouth: oropharynx normal Throat: Yes uvula midline Eyes Pupils: Equal, round and reactive pupils present Neck Neck: Yes full ROM, Yes trachea midline and Yes supple Resp Effort & Inspection: tachypneic and uses accessory muscles Auscultation: diminished lung sounds diffuse Cardio Rate: tachycardic Rhythm: regular rhythm Heart sounds: S1 normal heart sound present and S2 normal heart sound present Peripheral pulses: Peripheral pulses 2+ throughout GI Palpation (GI): Soft to palpation and nontender General: Yes no CVA tenderness Back/Spine/Pelvis Back: no CVA tenderness Skin General skin exam: elasticity normal and turgor normal Neuro General: patient oriented x3 and moves all extremities Cranial nerves: Yes Equal, round and reactive pupils present Medications Administered Generic Name Dose Route Start Last Admin Trade Name Freq PRN Reason Stop Dose Admin Acetaminophen 650 mg 07/07/24 20:02 07/08/24 10:47 Acetaminophen 325 Mg Tablet PO 650 mg Q6H PRN Administration Pain, Mild 1-3,fever,headache Albuterol/Ipratropium 3 ml 07/07/24 20:15 07/08/24 11:04 Albuterol/Iprat 2.5/0.5mg 3 Ml Ampul.Neb INHALE 3 ml RQ4H DAYAMI Administration Benzonatate 100 mg 07/07/24 20:02 07/08/24 08:35 Benzonatate 100 Mg Capsule PO 100 mg TID PRN Administration Cough Enoxaparin Sodium 40 mg 07/07/24 21:00 07/07/24 21:05 Enoxaparin Sodium 40 Mg/0.4 Ml Syringe SUBCUT 40 mg Q24H DAYAMI Administration Guaifenesin 600 mg 07/07/24 21:00 07/08/24 08:35 Guaifenesin La 600 Mg Tab.Er.12h PO 600 mg BID DAYAMI Administration Methylprednisolone Sodium Succinate 40 mg 07/08/24 09:00 07/08/24 08:35 Methylprednisolone Sod Succ 40 Mg/Ml Vial IVPUSH 40 mg Q12H DAYAMI Administration Nicotine 14 mg 07/08/24 09:00 07/08/24 08:38 Nicotine 14 Mg Patch.Td24 TRANSDERMA Not Given DAILY DAYAMI Sodium Chloride 3 ml 07/08/24 00:00 07/08/24 08:35 0.9 % Sodium Chloride Flush 3 Ml Syringe IVFLUSH 3 ml QSHIFT DAYAMI Administration Discontinued Medications Generic Name Dose Route Start Last Admin Trade Name Freq PRN Reason Stop Dose Admin Ceftriaxone Sodium 1 gm 07/07/24 17:37 07/07/24 18:34 Ceftriaxone Sodium 1 Gm Vial IVPUSH 07/07/24 17:38 1 gm ONCE ONE Administration Albuterol Sulfate 5 mg/ 0 mg 07/07/24 16:40 07/07/24 16:46 Albuterol/Ipratropium 3 ml INHALE 07/07/24 16:41 1 each ONCE ONE Administration Magnesium Sulfate 2 gm in 50 mls @ 150 mls/hr 07/07/24 16:35 07/07/24 17:05 Magnesium Sulfate/H2o IV 07/07/24 16:54 Not Given ONCE ONE Magnesium Sulfate 2 gm in 50 mls @ 25 mls/hr 07/07/24 16:35 07/07/24 21:00 Magnesium Sulfate/H2o IV 07/07/24 18:34 Infused ONCE ONE Infusion Azithromycin 500 mg/ Sodium 250 mls @ 125 mls/hr 07/07/24 17:37 07/07/24 21:25 Chloride IV 07/07/24 19:36 Infused ONCE ONE Infusion Lactated Ringer's 1,000 mls @ 999 mls/hr 07/07/24 19:15 07/07/24 22:01 Lr IV 07/07/24 20:15 Infused .Q1H1M DAYAMI Infusion Methylprednisolone Sodium Succinate 60 mg 07/07/24 16:35 07/07/24 17:05 Methylprednisolone Sod Succ 125 Mg/2 Ml Vial IVPUSH 07/07/24 16:36 Not Given ONCE ONE Methylprednisolone Sodium Succinate 125 mg 07/07/24 16:35 07/07/24 17:01 Methylprednisolone Sod Succ 125 Mg/2 Ml Vial IVPUSH 07/07/24 16:36 125 mg ONCE ONE Administration Medical Decision Making Medical Decision Making [facility] Narrative: Patient is a 28-year-old female with history of asthma presenting to the emergency department with complaint shortness of breath for the past 2 days. On exam patient is awake, A+Ox3, tachypneic, hypoxic, slightly tachycardic, normal neurological exam without focal deficits, physical exam findings as above. Given reported symptoms and physical exam findings, initial differential includes but is not limited to asthma exacerbation, viral illness, covid, flu, rsv, bronchitis, pneumonia. Labs notable for anemia consistent with prior lab values, no leukocytosis, normal VBG. Viral serology positive for RSV. X-ray chest notable for right lower lobe pneumonia. My interpretation is in agreement with the radiologist's interpretation. Patient meeting sepsis criteria, blood cultures and IV antibiotics ordered. No lactic acidosis. Oxygen saturation remains at 92-93% on supplemental oxygen, patient requires admission. Case discussed with Dr. García who accepts admission to medicine. Differential Diagnosis Differential Diagnoses: The differential diagnosis associated with the presentation includes As per [facility] Admission/Observation Consideration of admission/observation: Escalation of care including admission/observation considered Consult Healthcare Provider Management of the patient was discussed with: Hospitalist Lab Data [facility] Lab Attestation statement: I reviewed the patient's lab results. As per [facility] 07/07/24 17:13 07/08/24 06:22 Labs: Lab Results 07/07/24 07/07/24 07/07/24 Range/Units 17:13 17:17 18:11 WBC 5.1 (4.8-10.8) X10*3/uL RBC 5.14 (4.20-5.50) X10*6/uL Hgb 10.8 L (12.0-16.0) g/dl Hct 33.5 L (37.0-47.0) % MCV 65.2 L (80.0-98.0) fL MCH 21.0 L (27.0-33.0) pg MCHC 32.2 (31.0-35.0) g/dl RDW 18.2 H (11.0-16.0) % Plt Count 236 (160-400) X10*3/uL MPV Not Reportable Immature Gran % (Auto) 0.4 (0.0-0.4) % Neut % (Auto) 62.8 (45-73) % Lymph % (Auto) 21.2 (20-40) % [place] % (Auto) 7.1 (2-11) % Eos % (Auto) 8.1 H (0-4) % Baso % (Auto) 0.4 (0-2) % Lymph # (Auto) 1.1 L (1.2-4.9) X10*3/uL [place] # (Auto) 0.4 (0.1-1.2) X10*3/uL Eos # (Auto) 0.4 (0.0-0.4) X10*3/uL Baso # (Auto) 0.0 (0.0-0.2) X10*3/uL Abs Immat Gran (auto) 0.02 (0.00-0.03) X10*3/uL Absolute Neuts (auto) 3.2 (2.0-8.3) x10*3/uL Absolute Nucleated RBC 0.000 (0.0-0.012) X10*3/uL Nucleated RBC % (auto) 0.0 (0.0-0.2) /100WBC Smear Tech's Comments VERIFIED PT 14.0 H (10.9-12.4) SEC INR 1.2 H (0.9-1.1) VBG pH 7.41 (7.32-7.43) VBG pCO2 34 mmHg VBG pO2 30 mmHg VBG HCO3 22 (22-26) mmol/L VBG O2 Saturation 32.0 % VBG Base Excess -1.8 mmol/L Sodium 137 (135-145) mmol/L Potassium 4.0 (3.3-5.1) mmol/L Chloride 108 (96-108) mmol/L Carbon Dioxide 20 L (22-29) mmol/L Anion Gap 13 (12-20) BUN 5 L (9-16) mg/dL Creatinine 0.73 (0.5-1.4) mg/dL Estim Creat Clear Calc 159.9 Estimated GFR > 60 Random Glucose 121 H (60-115) mg/dL Estimat Average Glucose 111 mg/dL Hemoglobin A1c % 5.5 (<6.0) % Lactic Acid 1.2 (0.5-2.0) mmol/L Calcium 9.5 D (8.4-10.2) mg/dL Magnesium 2.9 H (1.6-2.6) mg/dL Iron 21 L (30-160) mcg/dL TIBC 387 (228-428) mcg/dL % Saturation 5 L (15-50) % Unsat Iron Binding 366 ug/dL Total Bilirubin 0.6 (0.0-1.0) mg/dL Direct Bilirubin 0.2 (0.0-0.5) mg/dL AST 17 (5-31) U/L ALT 9 (0-31) U/L Alkaline Phosphatase 75 (39-117) U/L Total Protein 8.3 H (6.5-8.0) g/dL Albumin 4.3 (3.5-5.0) g/dL Influenza Type A (PCR) NEGATIVE (Negative) Influenza Type B (PCR) NEGATIVE (Negative) RSV RNA Qual (PCR) POSITIVE A (Negative) SARS-CoV-2 RNA (RT-PCR) NEGATIVE (Negative) Independent Interpretation I performed an independent interpretation of an: Plain X-Ray Interpretation: Right lower lobe pneumonia on chest x-ray. Radiology Impression Discussion of test interpretation with radiology: I have reviewed the radiologist's reading. Radiologist Impression: IMPRESSION: Right lung base pneumonia. External Record Review External record reviewed: Inpatient record, Office record and Outpatient record Prescription Management I considered prescription management with: Antibiotic Attestation Attending Attestation: I was personally present and available for consultation in the ED. I have reviewed everything on the chart that is available and agree with the documentation provided by the PRISCILA including discussion about the assessment, treatment plan and discussion. Based on medical record the care appears appropriate. Chilo Schmidt MD [facility] Emergency Medicine Discharge Plan Discharge Clinical Impression: RSV infection, Right lower lobe pneumonia Patient Disposition: Admitted As Inpatient Interventions: Admission Worksheet (ED) Last Done: 07/07/24 22:40 Discharge Date/Time: 07/08/24 00:10
[2024-07-07] MEDS: Albuterol Sulfate 5 MG, Albuterol/Iprat 2.5/0.5MG 3 ML 3 ML INHALE (16:46)
[2024-07-07] MEDS: methylPREDNISolone Sod Succ 125 MG/2 ML VIAL IVPUSH (17:01)
[2024-07-07] MEDS: Magnesium Sulfate/H2O 2 GM/50 ML PIGGYBACK IV (17:02)
[2024-07-07 17:26] LABS: VBG Base Excess -1.8 mmol/L; VBG HCO3 22 mmol/L (22-26); VBG pCO2 34 mmHg; VBG pH 7.41 (7.32-7.43); VBG pO2 30 mmHg
[2024-07-07 17:28] LABS: Venous Blood Gas Refer to POC result
[2024-07-07 17:30] LABS: Basophils Percent Auto 0.4 % (0-2); Eosinophils Absolute Auto 0.4 X10*3/uL (0.0-0.4); Hemoglobin 10.8 g/dl (12.0-16.0); SCAN SMEAR FLAG 1
[2024-07-07 17:32] LABS: Eosinophils Percent Auto 8.1 % (0-4); Hematocrit 33.5 % (37.0-47.0); Imm Gran Abs Auto 0.02 X10*3/uL (0.00-0.03); Imm Gran Pct Auto 0.4 % (0.0-0.4); Lymphocytes Absolute Auto 1.1 X10*3/uL (1.2-4.9); Lymphocytes Percent Auto 21.2 % (20-40); MANUAL DIFF FLAG SCAN; Mean Corpuscular HGB Conc 32.2 g/dl (31.0-35.0); Mean Corpuscular Volume 65.2 fL (80.0-98.0); Monocytes Absolute Auto 0.4 X10*3/uL (0.1-1.2); Monocytes Percent Auto 7.1 % (2-11); Neutrophils Absolute Auto 3.2 x10*3/uL (2.0-8.3); Neutrophils Percent Auto 62.8 % (45-73); Platelet Count 236 X10*3/uL (160-400); Red Blood Count 5.14 X10*6/uL (4.20-5.50); Red Cell Distribution Width 18.2 % (11.0-16.0); White Blood Count 5.1 X10*3/uL (4.8-10.8)
[2024-07-07 17:33] LABS: PLT ABN DIST 1
[2024-07-07 17:35] LABS: INTERNATIONAL NORM RATIO 1.2 (0.9-1.1)
[2024-07-07 18:02] LABS: Alanine Aminotransferase 9 U/L (0-31); Albumin Level 4.3 g/dL (3.5-5.0); Alkaline Phosphatase 75 U/L (39-117); Anion Gap 13 (12-20); Aspartate Amino Transferase 17 U/L (5-31); Bilirubin Direct 0.2 mg/dL (0.0-0.5); Bilirubin Total 0.6 mg/dL (0.0-1.0); Blood Urea Nitrogen 5 mg/dL (9-16); Calcium 9.5 mg/dL (8.4-10.2); Carbon Dioxide 20 mmol/L (22-29); Chloride 108 mmol/L (96-108); Creatinine Clr Calc Pharmacy 159.9; Estimated Glomerular Filt Rate > 60; Glucose Random 121 mg/dL (60-115); Magnesium 2.9 mg/dL (1.6-2.6); Sodium 137 mmol/L (135-145); Total Protein 8.3 g/dL (6.5-8.0)
[2024-07-07 18:16] LABS: Influenza A PCR NEGATIVE (Negative); Influenza B PCR NEGATIVE (Negative); Resp Syncy Virus RNA Qual PCR POSITIVE (Negative); SARS COV2 PCR INHOUSE NEGATIVE (Negative)
[2024-07-07 18:21] LABS: SLIDE REVIEW VERIFIED
[2024-07-07] MEDS: cefTRIAXone sodium 1 GM VIAL IVPUSH (18:34)
[2024-07-07 18:35] LABS: Lactic Acid 1.2 mmol/L (0.5-2.0)
[2024-07-07] MEDS: Azithromycin 500 MG in 0.9 % Sodium Chloride 250 ML 125 MG IV (18:40)
--- NOTE | 2024-07-07 20:08 | P.HPHOSP_ITS ---
History of Present Illness Date of Service: 07/07/24 Chief Complaint: SOB, cough A 28 years old lady with PMH of persistant Asthma, Morbid obestiy, smoker who presents to the hospital with worsening SOB and dyspnea for the last 3 days not improving by home nebulizers. The patient reports having symptoms for at least 3 days with chills, fevers, weakness, wheezing and SOB requiring multiple doses of inhaler and nebulizer with no improvement. she ran out of nebulizer treatment as well. The patient walks for long distance in good days. she uses rescue inhalers on daily basis few times even in good days. She denies No chest pain, palpitations, nausea, vomiting, diarrhea or urinary symptoms. In ED found wheezy and dyspneic improved with nebulizer and O2 supplement. CXR showed possible RML infiltrates and Tested positive for RSV. Admitted for further management and treatment. Review of Systems 2 Review of Systems: reporting fever, chills or weakness No chest pain, palpitation having shortness of breath or coughing No abdominal pain, nausea or vomiting No urinary symptoms No any rash or wounds PMFSH Medical History Asthma Family History Other Family history of asthma Surgical History No pertinent past surgical history Social History Alcohol intake: current Alcohol intake frequency: holidays/special occasions only Alcohol type: wine Patient Tobacco Use Status: Never used Tobacco Advance Directives: Yes Advance Directives on File: Yes Advance Directives Date on File: 08/12/23 Do you have a plan to hurt others: No Plan service: No Current occupational status: employed Meds Allergies Allergy/AdvReac Type Severity Reaction Status Date / Time ziprasidone [From Geodon] Allergy Severe Anaphylaxis Verified 07/07/24 16:40 oseltamivir [From Tamiflu] Allergy Mild Hives Verified 07/07/24 16:40 Active Medications: Current Medications Acetaminophen (Acetaminophen 325 Mg Tablet) 650 mg PO Q6H PRN PRN Reason: Pain, Mild 1-3,fever,headache Albuterol Sulfate (Albuterol Sulfate (0.083%) 2.5 Mg/3 Ml Vial.Neb) 2.5 mg INHALE Q4H PRN PRN Reason: Shortness of Breath/Wheezing Albuterol/Ipratropium (Albuterol/Iprat 2.5/0.5mg 3 Ml Ampul.Neb) 3 ml INHALE Q4H COUNTS INCLUDE 234 BEDS AT THE [facility] Benzonatate (Benzonatate 100 Mg Capsule) 100 mg PO TID PRN PRN Reason: Cough Calcium Carbonate (Calcium Carbonate 750 Mg Tab.Chew) 750 mg PO Q4H PRN PRN Reason: Heartburn Enoxaparin Sodium (Enoxaparin Sodium 40 Mg/0.4 Ml Syringe) 40 mg SUBCUT Q24H COUNTS INCLUDE 234 BEDS AT THE [facility] Lactated Ringer's (Lr) 1,000 mls @ 999 mls/hr IV .Q1H1M COUNTS INCLUDE 234 BEDS AT THE [facility] Stop: 07/07/24 20:15 Magnesium Hydroxide (Milk Of Magnesia 30 Ml Oral.Susp) 30 ml PO DAILY PRN PRN Reason: Constipation Melatonin (Melatonin 3 Mg Tablet) 6 mg PO BEDTIME PRN PRN Reason: Insomnia Methylprednisolone Sodium Succinate (Methylprednisolone Sod Succ 40 Mg/Ml Vial) 40 mg IVPUSH Q12H COUNTS INCLUDE 234 BEDS AT THE [facility] Nicotine (Nicotine 14 Mg Patch.Td24) 14 mg TRANSDERMA DAILY COUNTS INCLUDE 234 BEDS AT THE [facility] Ondansetron HCl (Ondansetron Hcl 4 Mg/2 Ml Vial) 4 mg IVPUSH Q8H PRN PRN Reason: Nausea and Vomiting Sodium Chloride (0.9 % Sodium Chloride Flush 3 Ml Syringe) 3 ml IVFLUSH QSHIFT COUNTS INCLUDE 234 BEDS AT THE [facility] Physical Exam 2 Vital Signs and Narrative: Vital Signs: Last Vital Signs Temp 100.0 F 07/07/24 18:19 Pulse 110 H 07/07/24 19:17 Resp 22 H 07/07/24 18:19 BP 118/88 07/07/24 18:19 Pulse Ox 95 07/07/24 19:17 O2 Del Method Nasal Cannula 07/07/24 19:17 O2 Flow Rate 8 07/07/24 18:19 BMI result Body Mass Index 53.2 Const: Other: Constitutional : Awake, interactive, mobid obesity, in mild distress Neck : Normal inspection, Supple Cardiovascular : RRR, no JVP, trace lower extremity edema Respiratory : good bilateral air entry, fine rll crackles, bilateral expiratory wheezes Gastrointestinal: soft, lax, Normal bowel sounds, Non tender Skin : Warm, Dry Neurological : Alert & oriented x3, No focal deficit Results Labs 07/07/24 17:13 07/07/24 17:13 Labs: Laboratory Results - last 24 hr 07/07/24 07/07/24 07/07/24 17:13 17:17 18:11 MCV 65.2 L MCH 21.0 L MCHC 32.2 RDW 18.2 H Plt Count 236 MPV Not Reportable Immature Gran % (Auto) 0.4 Neut % (Auto) 62.8 Lymph % (Auto) 21.2 [place] % (Auto) 7.1 Eos % (Auto) 8.1 H Baso % (Auto) 0.4 Lymph # (Auto) 1.1 L [place] # (Auto) 0.4 Eos # (Auto) 0.4 Baso # (Auto) 0.0 Abs Immat Gran (auto) 0.02 Absolute Neuts (auto) 3.2 Absolute Nucleated RBC 0.000 Nucleated RBC % (auto) 0.0 Smear Tech's Comments VERIFIED PT 14.0 H INR 1.2 H VBG pH 7.41 VBG pCO2 34 VBG pO2 30 VBG HCO3 22 VBG O2 Saturation 32.0 VBG Base Excess -1.8 Anion Gap 13 Estim Creat Clear Calc 159.9 Estimated GFR > 60 Random Glucose 121 H Lactic Acid 1.2 Calcium 9.5 D Magnesium 2.9 H Total Bilirubin 0.6 Direct Bilirubin 0.2 AST 17 ALT 9 Alkaline Phosphatase 75 Total Protein 8.3 H Albumin 4.3 Influenza Type A (PCR) NEGATIVE Influenza Type B (PCR) NEGATIVE RSV RNA Qual (PCR) POSITIVE A SARS-CoV-2 RNA (RT-PCR) NEGATIVE Assessment and Plan (1) Right lower lobe pneumonia: Status: Acute (2) RSV infection: Status: Acute (3) Asthma attack: Status: Acute (4) Acute respiratory failure with hypoxia: Status: Acute Plan A 28 years old lady with PMH of persistant Asthma, Morbid obestiy, smoker who presents to the hospital with worsening SOB and dyspnea for the last 3 days not improving by home nebulizers. Acute hypoxic respiratory failure 2/2 RSV infection complicated with persistant asthma w acute exacerbation and possible bacterial pneumonia Not septic as tachycardia and tachypnea related to bronchodilators and viral illness Seems asthma not well controlled at baseline as she continues to smoke Start IV Steroids Duonebs Q4H , Albuterol PRN IV Azitrhomycin and Ceftriaxone Cough medicine Wean O2 down as tolerated Smoking Advised to quit Nicotine patches Morbid obesitry advised to lose weight Chronic anemia cheking iron stores will likely need Iron supplement DVT PPX Lovenox The patient will need 2 overnight hosptial stay for treatment of hypoxia, pneumonia and RSV infection pending weaning off O2 Quality Stroke Does the patient have a stroke diagnosis?: No VTE Prior VTE?: No VTE Risk Level:: Medical - moderate - high VTE Device Contraindication: Treatment Not Indicated VTE Drug Contraindication: N/A - Med Ordered
[2024-07-07 20:24] LABS: Iron 21 mcg/dL (30-160); Percent Iron Saturation 5 % (15-50); Total Iron Binding Capacity 387 mcg/dL (228-428); Unsaturated Iron Binding 366 ug/dL
[2024-07-07] MEDS: Lactated Ringers 1,000 ML 999 ML IV (21:00)
[2024-07-07] MEDS: Enoxaparin Sodium 40 MG/0.4 ML SYRINGE SUBCUT (21:05)
[2024-07-07] MEDS: Acetaminophen 325 MG TABLET 650 MG PO (21:05)
[2024-07-07] MEDS: Albuterol/Iprat 2.5/0.5MG 3 ML AMPUL.NEB INHALE (21:19)
[2024-07-07] MEDS: guaiFENesin LA 600 MG TAB.ER.12H PO (21:30)
--- NOTE | 2024-07-07 21:32 | PC.NURSE ---
Pt medicated per mar Tolerated well Pt a&ox4, no signs of distress. Pts gf at bedside Pt reports tylenol alleviated pain. RT with pt Plan of care ongoing.
[2024-07-08] VITALS (14 sets, daily range): BP systolic 116–137; BP diastolic 64–95; PULSE 84–106; RESP 16–20; TEMP 36.3–37.1; O2SAT 90–97; BMI 51.2
[2024-07-08] MEDS: Benzonatate 100 MG CAPSULE PO ×3 (00:19→16:58)
[2024-07-08] MEDS: 0.9 % Sodium Chloride Flush 3 ML SYRINGE IVFLUSH ×4 (00:20→19:53)
[2024-07-08] MEDS: Albuterol/Iprat 2.5/0.5MG 3 ML AMPUL.NEB INHALE ×7 (01:16→23:06)
[2024-07-08 06:16] LABS: Estimated Average Glucose 111 mg/dL; Hemoglobin A1C 107.0419 umol/L; Hemoglobin A1c % 5.5 % (<6.0); Total Hemoglobin (HGBA1C) 2894.5333 umol/L
[2024-07-08 06:56] LABS: Anion Gap 14 (12-20); Blood Urea Nitrogen 8 mg/dL (9-16); Calcium 9.6 mg/dL (8.4-10.2); Carbon Dioxide 21 mmol/L (22-29); Chloride 109 mmol/L (96-108); Creatinine Clr Calc Pharmacy 172.6; Estimated Glomerular Filt Rate > 60; Glucose Random 114 mg/dL (60-115); Potassium 4.6 mmol/L (3.3-5.1); Sodium 139 mmol/L (135-145)
--- NOTE | 2024-07-08 08:05 | HO.PM.IMPN ---
Subjective Subjective Date of Service: 07/08/24 Interval History: Seen in follow up for acute asthma exacerbation with hypoxia Interval history: Still requiring supplemental O2, and doesn't feel well, audible wheezing Physical Exam Vital Signs: Vital Signs: Last Vital Signs Temp 98.6 F 07/08/24 07:25 Pulse 90 07/08/24 07:25 Resp 20 07/08/24 08:03 BP 135/95 H 07/08/24 07:25 Pulse Ox 96 07/08/24 07:25 O2 Del Method Oxymask 07/08/24 07:25 O2 Flow Rate 8 07/08/24 07:25 BMI result Body Mass Index 51.2 Const: Other: General: AO X 3, no acute distress Resp: normal effort, gary ins/exp wheezing CVS: S1,S2,RRR GI: +BS, NT, no distention Skin: No rash Neuro: motor grossly intact Psych: appropriate affect Objective Data Active Medications Acetaminophen (Acetaminophen 325 Mg Tablet) 650 mg PO Q6H PRN PRN Reason: Pain, Mild 1-3,fever,headache Last Admin: 07/07/24 21:05 Dose: 650 mg Documented By: DINAH Albuterol Sulfate (Albuterol Sulfate (0.083%) 2.5 Mg/3 Ml Vial.Neb) 2.5 mg INHALE Q4H PRN PRN Reason: Shortness of Breath/Wheezing Albuterol/Ipratropium (Albuterol/Iprat 2.5/0.5mg 3 Ml Ampul.Neb) 3 ml INHALE RQ4H [facility] Last Admin: 07/08/24 08:03 Dose: 3 ml Documented By: BLASCL Benzonatate (Benzonatate 100 Mg Capsule) 100 mg PO TID PRN PRN Reason: Cough Last Admin: 07/08/24 00:19 Dose: 100 mg Documented By: ARIES-COLEMAN Calcium Carbonate (Calcium Carbonate 750 Mg Tab.Chew) 750 mg PO Q4H PRN PRN Reason: Heartburn Ceftriaxone Sodium (Ceftriaxone Sodium 1 Gm Vial) 1 gm IVPUSH Q24H DAYAMI Enoxaparin Sodium (Enoxaparin Sodium 40 Mg/0.4 Ml Syringe) 40 mg SUBCUT Q24H [facility] Last Admin: 07/07/24 21:05 Dose: 40 mg Documented By: DINAH Guaifenesin (Guaifenesin La 600 Mg Tab.Er.12h) 600 mg PO BID [facility] Last Admin: 07/07/24 21:30 Dose: 600 mg Documented By: DINAH Azithromycin 500 mg/ Sodium (Chloride) 250 mls @ 125 mls/hr IV Q24H [facility] Magnesium Hydroxide (Milk Of Magnesia 30 Ml Oral.Susp) 30 ml PO DAILY PRN PRN Reason: Constipation Melatonin (Melatonin 3 Mg Tablet) 6 mg PO BEDTIME PRN PRN Reason: Insomnia Methylprednisolone Sodium Succinate (Methylprednisolone Sod Succ 40 Mg/Ml Vial) 40 mg IVPUSH Q12H DAYAMI Nicotine (Nicotine 14 Mg Patch.Td24) 14 mg TRANSDERMA DAILY [facility] Ondansetron HCl (Ondansetron Hcl 4 Mg/2 Ml Vial) 4 mg IVPUSH Q8H PRN PRN Reason: Nausea and Vomiting Sodium Chloride (0.9 % Sodium Chloride Flush 3 Ml Syringe) 3 ml IVFLUSH QSHIFT [facility] Last Admin: 07/08/24 00:20 Dose: 3 ml Documented By: KIRTI Labs 07/07/24 17:13 07/08/24 06:22 Labs: Laboratory Results - last 24 hr 07/07/24 07/07/24 07/07/24 17:13 17:17 18:11 MCV 65.2 L MCH 21.0 L MCHC 32.2 RDW 18.2 H Plt Count 236 MPV Not Reportable Immature Gran % (Auto) 0.4 Neut % (Auto) 62.8 Lymph % (Auto) 21.2 [place] % (Auto) 7.1 Eos % (Auto) 8.1 H Baso % (Auto) 0.4 Lymph # (Auto) 1.1 L [place] # (Auto) 0.4 Eos # (Auto) 0.4 Baso # (Auto) 0.0 Abs Immat Gran (auto) 0.02 Absolute Neuts (auto) 3.2 Absolute Nucleated RBC 0.000 Nucleated RBC % (auto) 0.0 Smear Tech's Comments VERIFIED PT 14.0 H INR 1.2 H VBG pH 7.41 VBG pCO2 34 VBG pO2 30 VBG HCO3 22 VBG O2 Saturation 32.0 VBG Base Excess -1.8 Anion Gap 13 Estim Creat Clear Calc 159.9 Estimated GFR > 60 Random Glucose 121 H Estimat Average Glucose 111 Hemoglobin A1c % 5.5 Lactic Acid 1.2 Calcium 9.5 D Magnesium 2.9 H Iron 21 L TIBC 387 % Saturation 5 L Unsat Iron Binding 366 Total Bilirubin 0.6 Direct Bilirubin 0.2 AST 17 ALT 9 Alkaline Phosphatase 75 Total Protein 8.3 H Albumin 4.3 Influenza Type A (PCR) NEGATIVE Influenza Type B (PCR) NEGATIVE RSV RNA Qual (PCR) POSITIVE A SARS-CoV-2 RNA (RT-PCR) NEGATIVE 07/08/24 06:22 MCV MCH MCHC RDW Plt Count MPV Immature Gran % (Auto) Neut % (Auto) Lymph % (Auto) [place] % (Auto) Eos % (Auto) Baso % (Auto) Lymph # (Auto) [place] # (Auto) Eos # (Auto) Baso # (Auto) Abs Immat Gran (auto) Absolute Neuts (auto) Absolute Nucleated RBC Nucleated RBC % (auto) Smear Tech's Comments PT INR VBG pH VBG pCO2 VBG pO2 VBG HCO3 VBG O2 Saturation VBG Base Excess Anion Gap 14 Estim Creat Clear Calc 172.6 Estimated GFR > 60 Random Glucose 114 Estimat Average Glucose Hemoglobin A1c % Lactic Acid Calcium 9.6 Magnesium Iron TIBC % Saturation Unsat Iron Binding Total Bilirubin Direct Bilirubin AST ALT Alkaline Phosphatase Total Protein Albumin Influenza Type A (PCR) Influenza Type B (PCR) RSV RNA Qual (PCR) SARS-CoV-2 RNA (RT-PCR) Assessment and Plan (1) RSV infection: Status: Acute (2) Acute respiratory failure with hypoxia: Status: Acute (3) Asthma attack: Status: Acute Plan A 28/Fpersistant Asthma, Morbid obestiy, smoker who presents to the hospital with worsening SOB and found to have RSV related acute hypoxic respirator failure triggering asthma exacerbation Acute hypoxic respiratory failure 2/2 RSV infection complicated with persistant asthma w acute exacerbation and possible bacterial pneumonia IV Steroids bronchodilators by neb IV Azitrhomycin and Ceftriaxone started 2/ Cough medicine Wean O2 down as tolerated Smoking Advised to quit NRT Morbid obesitry advised to lose weight Chronic iron def anemia iron supplement DVT PPX Lovenox The patient will need 2 overnight hosptial stay for treatment of hypoxia, pneumonia and RSV infection pending weaning off O2 Quality Stroke Does the patient have a stroke diagnosis?: No VTE Prior VTE?: No VTE Risk Level:: Medical - moderate - high VTE Device Contraindication: Treatment Not Indicated VTE Drug Contraindication: N/A - Med Ordered
[2024-07-08] MEDS: guaiFENesin LA 600 MG TAB.ER.12H PO ×2 (08:35→19:52)
[2024-07-08] MEDS: methylPREDNISolone Sod Succ 40 MG/ML VIAL IVPUSH ×2 (08:35→19:52)
--- NOTE | 2024-07-08 08:50 | PHA.MEDREC ---
Pharmacy Consult ? Medication Reconciliation Pharmacy has completed the medication reconciliation. Spoke with patient in her room. Patient only takes albuterol inhaler or primatene mist. Patient is not taking flovent because her insurance would not cover this medication. She used to use nebulizers but ran out of them a while ago.
--- NOTE | 2024-07-08 08:53 | MHC.CM.PN ---
Pt lives with her , who is HCP: Tashi, she does not have PCP, brochure and info on [facility] given. For DME, pt has nebulizer. She is functionally independent, no home health services. She will need assistance with transport home at DC. CM to follow for DC needs.
[2024-07-08] MEDS: Acetaminophen 325 MG TABLET 650 MG PO (10:47)
[2024-07-08] MEDS: cefTRIAXone sodium 1 GM VIAL IVPUSH (16:58)
[2024-07-08] MEDS: Azithromycin 500 MG in 0.9 % Sodium Chloride 250 ML 125 MG IV (16:58)
[2024-07-08] MEDS: diphenhydrAMINE HCL 25 MG CAPSULE PO (19:52)
[2024-07-08] MEDS: Enoxaparin Sodium 40 MG/0.4 ML SYRINGE SUBCUT (19:52)
[2024-07-09] VITALS (7 sets, daily range): BP systolic 131–140; BP diastolic 60–81; PULSE 91–120; RESP 16–20; TEMP 36.3–36.8; O2SAT 91–96
[2024-07-09] MEDS: Acetaminophen 325 MG TABLET 650 MG PO (00:03)
[2024-07-09] MEDS: Albuterol/Iprat 2.5/0.5MG 3 ML AMPUL.NEB INHALE ×3 (04:19→11:15)
[2024-07-09] MEDS: Benzonatate 100 MG CAPSULE PO (08:25)
[2024-07-09] MEDS: guaiFENesin LA 600 MG TAB.ER.12H PO (08:25)
[2024-07-09] MEDS: methylPREDNISolone Sod Succ 40 MG/ML VIAL IVPUSH (08:25)
[2024-07-09] MEDS: 0.9 % Sodium Chloride Flush 3 ML SYRINGE IVFLUSH (08:26)
--- NOTE | 2024-07-09 12:59 | HO.PM.IMPN ---
Subjective Subjective Date of Service: 07/09/24 Interval History: Seen in follow up for acute asthma exacerbation with hypoxia Interval history: She is feeling better, but still experiencing intermittent hypoxia when O2 is off\ Physical Exam Vital Signs: Vital Signs: Last Vital Signs Temp 98.3 F 07/09/24 11:32 Pulse 98 07/09/24 11:32 Resp 20 07/09/24 11:32 BP 140/75 H 07/09/24 11:32 Pulse Ox 92 07/09/24 11:32 O2 Del Method Room Air 07/09/24 11:32 O2 Flow Rate 2 07/09/24 07:57 BMI result Body Mass Index 51.2 Objective Data Active Medications Acetaminophen (Acetaminophen 325 Mg Tablet) 650 mg PO Q6H PRN PRN Reason: Pain, Mild 1-3,fever,headache Last Admin: 07/09/24 00:03 Dose: 650 mg Documented By: SALCASPER Albuterol Sulfate (Albuterol Sulfate (0.083%) 2.5 Mg/3 Ml Vial.Neb) 2.5 mg INHALE Q4H PRN PRN Reason: Shortness of Breath/Wheezing Albuterol/Ipratropium (Albuterol/Iprat 2.5/0.5mg 3 Ml Ampul.Neb) 3 ml INHALE RQ4H [facility] Last Admin: 07/09/24 11:15 Dose: 3 ml Documented By: FEYRCRISTIN Benzonatate (Benzonatate 100 Mg Capsule) 100 mg PO TID PRN PRN Reason: Cough Last Admin: 07/09/24 08:25 Dose: 100 mg Documented By: JAYE Calcium Carbonate (Calcium Carbonate 750 Mg Tab.Chew) 750 mg PO Q4H PRN PRN Reason: Heartburn Ceftriaxone Sodium (Ceftriaxone Sodium 1 Gm Vial) 1 gm IVPUSH Q24H [facility] Last Admin: 07/08/24 16:58 Dose: 1 gm Documented By: JAYE Diphenhydramine HCl (Diphenhydramine Hcl 25 Mg Capsule) 25 mg PO Q6H PRN PRN Reason: Itching Last Admin: 07/08/24 19:52 Dose: 25 mg Documented By: BELTALA Enoxaparin Sodium (Enoxaparin Sodium 40 Mg/0.4 Ml Syringe) 40 mg SUBCUT Q24H [facility] Last Admin: 07/08/24 19:52 Dose: 40 mg Documented By: DARA Guaifenesin (Guaifenesin La 600 Mg Tab.Er.12h) 600 mg PO BID [facility] Last Admin: 07/09/24 08:25 Dose: 600 mg Documented By: JAYE Azithromycin 500 mg/ Sodium (Chloride) 250 mls @ 125 mls/hr IV Q24H [facility] Last Infusion: 07/08/24 19:15 Dose: Infused Documented By: DARA Magnesium Hydroxide (Milk Of Magnesia 30 Ml Oral.Susp) 30 ml PO DAILY PRN PRN Reason: Constipation Melatonin (Melatonin 3 Mg Tablet) 6 mg PO BEDTIME PRN PRN Reason: Insomnia Methylprednisolone Sodium Succinate (Methylprednisolone Sod Succ 40 Mg/Ml Vial) 40 mg IVPUSH Q12H [facility] Last Admin: 07/09/24 08:25 Dose: 40 mg Documented By: JAYE Nicotine (Nicotine 14 Mg Patch.Td24) 14 mg TRANSDERMA DAILY [facility] Last Admin: 07/09/24 08:27 Dose: Not Given Documented By: JAYE Non-Admin Reason: Patient Refused Ondansetron HCl (Ondansetron Hcl 4 Mg/2 Ml Vial) 4 mg IVPUSH Q8H PRN PRN Reason: Nausea and Vomiting Sodium Chloride (0.9 % Sodium Chloride Flush 3 Ml Syringe) 3 ml IVFLUSH QSHIFT [facility] Last Admin: 07/09/24 08:26 Dose: 3 ml Documented By: JAYE Labs 07/07/24 17:13 07/08/24 06:22 Microbiology Microbiology Results: Microbiology 07/07/24 18:11 Blood Culture - Preliminary Blood - Venous No growth after 24 hours. 07/07/24 18:04 Blood Culture - Preliminary Blood - Venous No growth after 24 hours. Assessment and Plan (1) RSV infection: Status: Acute (2) Acute respiratory failure with hypoxia: Status: Acute (3) Asthma attack: Status: Acute Plan A 28/Fpersistant Asthma, Morbid obestiy, smoker who presents to the hospital with worsening SOB and found to have RSV related acute hypoxic respirator failure triggering asthma exacerbation Acute hypoxic respiratory failure 2/2 RSV infection complicated with persistant asthma w acute exacerbation and possible bacterial pneumonia IV Steroids, change to PO bronchodilators by neb IV Azitrhomycin and Ceftriaxone started 07/07 Cough medicine Wean O2 down as tolerated Smoking Advised to quit NRT Morbid obesitry advised to lose weight Chronic iron def anemia iron supplement DVT PPX Lovenox The patient will need 2 overnight hosptial stay for treatment of hypoxia, pneumonia and RSV infection pending weaning off O2 she is expressing desire to go home and will reassess O2 and if does ok will discharge later Quality Stroke Does the patient have a stroke diagnosis?: No VTE Prior VTE?: No VTE Risk Level:: Medical - moderate - high VTE Device Contraindication: Treatment Not Indicated VTE Drug Contraindication: N/A - Med Ordered
--- NOTE | 2024-07-09 13:12 | PM.DS ---
DS: Providers Provider Date of Service: 07/09/24 Date of admission: 07/07/24 20:03 Date of discharge: 07/09/24 Primary care physician: Jesus Manuel Physician DS: Diagnosis Discharge Diagnosis (1) RSV infection: Status: Acute (2) Acute respiratory failure with hypoxia: Status: Acute (3) Asthma attack: Status: Acute DS: Summary Hospital Course Hospital Course: admission hpi A 28 years old lady with PMH of persistant Asthma, Morbid obestiy, smoker who presents to the hospital with worsening SOB and dyspnea for the last 3 days not improving by home nebulizers. The patient reports having symptoms for at least 3 days with chills, fevers, weakness, wheezing and SOB requiring multiple doses of inhaler and nebulizer with no improvement. she ran out of nebulizer treatment as well. The patient walks for long distance in good days. she uses rescue inhalers on daily basis few times even in good days. She denies No chest pain, palpitations, nausea, vomiting, diarrhea or urinary symptoms. In ED found wheezy and dyspneic improved with nebulizer and O2 supplement. CXR showed possible RML infiltrates and Tested positive for RSV. Admitted for further management and treatment. hospital course: The patient was admitted for managment of acute hypoxic respiratory failure due to RSV causing asthma exacerbation with hypoxia. She was treated with IV steroid, bronchodialtors by Neb, and empiric antibiotics with ceftriaxone and Azithromycin for a CXR showing righ base pneumonia. She is presently afebrile and WBC was normal on presentation. Will dsicharge with Prednisone to complete 5 days of steroid, Azithromycin for 5 days for pneumonia and rest for few days before returning to work. Time Attestation Discharge Coordination Time (in mins): 45 Quality: Safe Use of Opioids Does Pt have an Active Cancer Diagnosis on the Problem List?: No Quality: Stroke Does the patient have a stroke diagnosis?: No Physical Exam Vital Signs: Vital Signs: Last Vital Signs Temp 98.3 F 07/09/24 11:32 Pulse 98 07/09/24 11:32 Resp 20 07/09/24 11:32 BP 140/75 H 07/09/24 11:32 Pulse Ox 92 07/09/24 11:32 O2 Del Method Room Air 07/09/24 11:32 O2 Flow Rate 2 07/09/24 07:57 BMI result Body Mass Index 51.2 Const: Other: General: AO X 3, no acute distress Resp: CTA bilateral CVS: S1,S2,RRR GI: +BS, NT, no distention Skin: No rash Neuro: motor grossly intact Psych: appropriate affect DS: Data Data Completed and Pending Labs on day of discharge: Preliminary micro results at discharge 07/07/24 18:11 Blood Culture - Preliminary Blood - Venous No growth after 24 hours. 07/07/24 18:04 Blood Culture - Preliminary Blood - Venous No growth after 24 hours. Discharge Plan Discharge Anticipated Discharge Date/Time: 07/09/24 14:21 Patient Disposition: Home, Self-Care Discharge Diagnosis: RSV, pneumonia, asthma exacerbation Referrals: Physician,None [Primary Care Provider] - 1 Week Discharge Medications: New prednisone 20 mg tablet 40 mg PO DAILY Qty: 6 0RF Rx Instructions: next dose 07/10/24 azithromycin 250 mg Tablet 250 mg PO Q24H Qty: 2 0RF Rx Instructions: next dose tomorrow benzonatate 100 mg Capsule 100 mg PO TID PRN (Reason: Cough) Qty: 15 0RF albuterol sulfate 2.5 mg /3 mL (0.083 %) Solution For Nebulization 2.5 mg inhalation Q4H PRN (Reason: Shortness Of Breath/Wheezing) Qty: 90 0RF Continued (DME) Proctor Choice Neb Kit-Adult Misc See Rx Instructions .Route Qty: 1 0RF Rx Instructions: As directed (DME) nebulizer and compressor Device See Rx Instructions .Route Qty: 1 0RF Rx Instructions: As directed Primatene Mist 0.125 mg/actuation Hfa Aerosol Inhaler 1 puff INHALATION Q4H PRN (Reason: Shortness Of Breath Or Wheezing) Rx Instructions: may repeat once after 1 minute; do not exceed 8 inhalations per 24 hrs albuterol sulfate 90 mcg/actuation HFA aerosol inhaler 2 inh inhalation Q2H PRN (Reason: shortness of breath or wheezing) Discharge Orders: Discharge Order (Routine); Ordered 07/09/24 Ordered By: Bruce Chen Diet: Advance to usual diet Activity on Discharge: As tolerated Stand Alone Forms: Patient Portal Discharge page, Work/School Release Print Language: [place] Care Plan Goals: recovery from RSV, pneumonia and asthma exacerbation Health Concerns: asthma exacerbation pneumonia RSV Plan of Treatment: take Azithromycin for pneumonia take Prednisone for asthma exacerbation continue using your inhalers use mask if public if still coughing follow up with your doctor in a week, call for appointment Assessment: see above Patient Instructions: Prednisone (By mouth), Azithromycin (By mouth) Discharge Date/Time: 07/09/24 15:13
--- NOTE | 2024-07-09 13:52 | MHC.CM.PN ---
PER HOSPITALIST ANTIC PT WILL BE MEDICALLY CLEARED FOR DC IF TOLERATES BEING WEANED OFF O2, PT WILL ARRANGE TRANSPORT
[2024-07-09] MEDS: Azithromycin 250 MG TABLET PO (14:32)
== END 2024-07-09 15:13 | disposition home or self-care (01) | DRG 139 ==
LOC: HO.ED 19:56 → HO.EDOVER 20:12 → HO.IMC 22:40
PROVIDERS: Emergency Medicine; Registered Nurse Emergency; Admitting Provider Student in an Organized Health Care Education/Training Program; Emergency Provider Emergency Medicine; Visit Provider Internal Medicine
DX: J15.9 Unspecified bacterial pneumonia (principal); J96.01 Acute respiratory failure with hypoxia; J45.901 Unspecified asthma with (acute) exacerbation; B97.4 Respiratory syncytial virus as the cause of diseases classified elsewhere; Z68.43 Body mass index [BMI] 50.0-59.9, adult; E66.01 Morbid (severe) obesity due to excess calories; D50.9 Iron deficiency anemia, unspecified; Z71.3 Dietary counseling and surveillance; Z79.899 Other long term (current) drug therapy
CPT/HCPCS: 0241U; 36415; 71045; 80048; 80053; 80076; 82803; 83036; 83540; 83605; 83735; 85025; 85610; 87040; 94640; 99285; J0456; J0696; J1650; J2919; J3475; J7120

== ENCOUNTER → 2024-07-07 16:35 | Outpatient (BNV) | payer OTHER, SELFPAY | PROVIDERS: Emergency Provider Emergency Medicine; Visit Provider Radiology Diagnostic Radiology | DX: J18.1 Lobar pneumonia, unspecified organism (principal) | CPT/HCPCS: 71045 ==